=== PATIENT | female | born 1940 | race Native Hawaiian/Other Pacific Islander ===

== ENCOUNTER 2022-08-17 | Outpatient (REF) | payer BC, SELFPAY ==
--- NOTE | ~2022-08-17 | XR_ITS ---
EXAMINATION: XR SHOULDER, RIGHT CLINICAL INFORMATION: Pain. COMPARISON: Radiograph of the right shoulder, outside facility 06/24/2022. TECHNIQUE: Three views of the right shoulder. FINDINGS: No acute fractures or malalignment. Decrease calcific densities adjacent to the greater tuberosity when compared to 06/24/2022. 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 No significant soft tissue abnormality. Atherosclerotic disease of the thoracic aorta. XR/XR shoulder RT min 2V IMPRESSION: 1. No acute fractures or malalignment. 2. Decreased calcific densities adjacent to the greater tuberosity when compared to 06/24/2022.
== END 2022-08-17 00:01 | disposition home or self-care (01) ==
LOC: HO.HOSX
PROVIDERS: Visit Provider Physician Assistant
DX: M75.101 Unspecified rotator cuff tear or rupture of right shoulder, not specified as traumatic (principal)
CPT/HCPCS: 20610; 73030; J1040

== ENCOUNTER 2023-02-01 08:39 | Outpatient (REF) | payer BC, SELFPAY ==
--- NOTE | ~2023-02-01 | XR_ITS ---
EXAMINATION: XR SHOULDER, LEFT CLINICAL INFORMATION: Shoulder pain. COMPARISON: None available. TECHNIQUE: Three views of the left shoulder. FINDINGS: Some minimal degenerative changes are seen with a tiny inferior glenoid osteophyte and some minimal osteophytes at the inferior humeral head. The AC joint appears unremarkable. No fractures. No tendinous calcifications are seen. XR/XR shoulder LT min 2V IMPRESSION: Minimal degenerative changes as described above.
== END 2023-02-01 08:40 | disposition home or self-care (01) ==
LOC: HO.HOSX 08:39
PROVIDERS: Visit Provider Physician Assistant
DX: M19.011 Primary osteoarthritis, right shoulder (principal); M19.012 Primary osteoarthritis, left shoulder
CPT/HCPCS: 20610; 73030; J1040

== ENCOUNTER 2024-03-22 11:03 | Outpatient (AMB) | payer BC, SELFPAY ==
--- NOTE | 2024-03-22 11:54 | MHC.OFFVIS ---
Intake Visit Reasons: New Prob- Rt hand 2,3rd trigger finger w/pain Intake Note: Maria E 83 yr old female presents today for a new problem visit for her right thumb, index finger and middle finger pain/off and on numbness. States her fingers get numb when she is cooking and washing dishes. Worse in the mornings. Patient had an injection in her thumb about a year ago which gave her relief. Patient would like to discuss injection. Allergies codeine Allergy (Verified 03/22/24 11:58) Anxiety HPI HPI New Prob- Rt hand 2,3rd trigger finger w/pain: Details: Maria E is an 83 year old right hand dominant woman who presents with complaints of thumb & finger pain. She complains of pain & cramping in her right thumb, index, and middle fingers intermittently. She also complains of occasional painful locking of her [ ]. She found relief from a left thumb injection ~1 year ago at an outside clinic. She denies any numbness or tingling today. [facility] Medical History Asthma Gout High blood pressure High cholesterol Social History (Updated 03/22/24 @ 11:59 by Kofi Blanco) Alcohol intake: current Alcohol intake frequency: holidays/special occasions only Patient Tobacco Use Status: Never used Tobacco Current occupational status: retired Current occupation: rt hand / Review of Systems Const All systems reviewed & are unremarkable except as noted in HPI and below Physical Exam Const General: cooperative, healthy appearing and no acute distress Orientation/consciousness: patient oriented x3 HEENT Head: Yes normocephalic and Yes atraumatic Eyes EOM: EOMs intact bilaterally Resp Effort & Inspection: normal respiratory effort and able to speak in complete sentences Cardio Jugular venous distension: no JVD Skin General skin exam: turgor normal Rashes: no rashes Neuro General: patient oriented x3 Extrem Other: Evaluation of Right Upper Extremity: The patient is alert, oriented, and in no acute distress Neuro: Median, Ulnar, Radial nerves motor and sensory intact and sensation is normal to the tips of all digits No thenar or intrinsic wasting Good APB muscle belly firing and good finger cross Vascular: Cap refill brisk ROM: She can make a fist and extend all her digits Visible and palpable locking & catching of the thumb, and middle fingers Palpable nodule of the index finger a1 dipesh Tender over the a1 dipesh of the thumb, index, and middle fingers Skin: No lacerations or abrasions. General: No Ecchymosis. No Erythema or evidence of infection. Psych Appearance: grossly normal Affect: normal affect Attitude: cooperative Office Procedures Fracture Care Details: No fracture, injection Fracture Billing Code: Fracture Billing Code Assessment & Plan Assessment & Plan (1) Trigger thumb, right thumb: Code(s): M65.311 - Trigger thumb, right thumb Category: Medical (2) Trigger finger, right index finger: Code(s): M65.321 - Trigger finger, right index finger Category: Medical (3) Trigger finger, right middle finger: Code(s): M65.331 - Trigger finger, right middle finger Category: Medical Plan Assessment & Plan: 1. Right trigger thumb This is her primary complaint today 2. Right index finger trigger finger 3. Right middle finger trigger finger I educated her and her about this condition I discussed operative and non-operative treatment options The patient would like to proceed with an injection and the trigger thumb is the worst, and she is only interested in 1 injection today.. Injection #1: The risks and benefits of a steroid injection including but not limited to risk of damage to blood vessels, nerves, tendons, infection, skin bleaching, failure to improve symptoms, increased pain, and possible need for further injections or other intervention were discussed with the patient and the patient wishes to proceed with the steroid injection. Once consent was obtained, I sterilely prepped the area over the A1 dipesh of the flexor tendon sheath of the Right thumb. I then injected the flexor tendon sheath with a combination of 1 mL of dexamethasone (4mg/ml), and 1% lidocaine. The patient tolerated the procedure well with no complications. The patient would like to schedule appointment in 4-6 weeks to discuss possible steroid injections for her other trigger fingers at that time. She may follow up in the next few weeks to discuss a possible injection for her index & middle fingers Scribed for Chelle Coyne MD by Devonte Real medical director occupational health, on 03/22/24 at 12:15 PM, EST. Coding Level of Care Code New Pt Level 3 (40815) Diagnoses Trigger thumb, right thumb M65.311 Trigger finger, right index finger M65.321 Trigger finger, right middle finger M65.331 CPT Codes Fracture Care - Fracture Billing Code: Fracture Billing Code ([id number])
== END 2024-03-22 12:34 | disposition home or self-care (01) ==
PROVIDERS: PCP Nurse Practitioner Family; Visit Provider Orthopaedic Surgery
DX: M65.311 Trigger thumb, right thumb (principal); M65.321 Trigger finger, right index finger; M65.331 Trigger finger, right middle finger
CPT/HCPCS: 20550; 99203

== ENCOUNTER → 2024-03-22 11:03 | Outpatient (BNVA) | payer BC, SELFPAY | PROVIDERS: PCP Nurse Practitioner Family; Visit Provider Orthopaedic Surgery | DX: M65.311 Trigger thumb, right thumb (principal); M65.321 Trigger finger, right index finger; M65.331 Trigger finger, right middle finger | CPT/HCPCS: 20550; J1100 ==

== ENCOUNTER 2024-05-03 09:39 | Outpatient (AMB) | payer BC, SELFPAY ==
--- NOTE | 2024-05-03 09:46 | A.OFFVIS_ITS ---
Vital Signs 05/03/24 09:47 Height 4 ft 11 in Weight 130 lb BMI 26.3 Handedness Right Intake Visit Reasons: OV- Rt hand 2,3rd trigger finger w/pain Intake Note: Maria E is a 83 year old right hand dominant female who presents with her Lawson today for a follow up of her right thumb, index finger, and middle finger trigger. Right thumb injection done on 03/22/24. Patient reports she is still having relief from her last thumb injection. She states she feels she is doing well, has not had cramping and has no concerns. Denies numbness and tingling. She would like to repeat injection today if she is able to and would like to hold off on surgical treatment. Accompanied by: Spouse Allergies codeine Allergy (Verified 05/03/24 09:51) Anxiety HPI HPI OV- Rt hand 2,3rd trigger finger w/pain: Details: Maria E is an 83 year old right hand dominant woman who returns to discuss her right thumb index, and middle trigger fingers. She says she is doing well and her thumb no longer is locking or catching after her injection on 03/22/24. She also says her index & middle fingers are not particularly bothersome for her at this time. She denies any numbness or tingling today. [facility] Medical History High blood pressure Gout Asthma High cholesterol Social History Alcohol intake: current Alcohol intake frequency: holidays/special occasions only Patient Tobacco Use Status: Never used Tobacco Current occupational status: retired Current occupation: rt hand / Physical Exam Vital Signs: BMI result Body Mass Index 26.3 Extrem Other: Evaluation of Right Upper Extremity: The patient is alert, oriented, and in no acute distress Neuro: Median, Ulnar, Radial nerves motor and sensory intact and sensation is normal to the tips of all digits No thenar or intrinsic wasting Good APB muscle belly firing and good finger cross Vascular: Cap refill brisk ROM: She can make a fist and extend all her digits No locking or catching of any digits No tenderness over the a1 dipesh Assessment & Plan Assessment & Plan (1) Trigger thumb, right thumb: Code(s): M65.311 - Trigger thumb, right thumb Category: Medical (2) Trigger finger, right index finger: Code(s): M65.321 - Trigger finger, right index finger Category: Medical (3) Trigger finger, right middle finger: Code(s): M65.331 - Trigger finger, right middle finger Category: Medical Plan Assessment & Plan: 1. Right trigger thumb, S/P injection Date of injection: 03/22/24 Resolved 2. Right index finger trigger finger Resolved 3. Right middle finger trigger finger Resolved She says she is doing well following her injection, and her thumb is no longer locking or catching If her symptoms return she can follow up to discuss treatment options Otherwise she can follow up prn Scribed for Chelle Coyne MD by Devonte Real, medical records auditor, on 05/03/24 at 9:55 AM, EST. Coding Level of Care Code Est Pt Level 3 (82479) Diagnoses Trigger thumb, right thumb M65.311 Trigger finger, right index finger M65.321 Trigger finger, right middle finger M65.331
[2024-05-03 09:47] VITALS: BMI 26.3
== END 2024-05-03 09:54 | disposition home or self-care (01) ==
PROVIDERS: PCP Nurse Practitioner Family; Visit Provider Orthopaedic Surgery
DX: M65.311 Trigger thumb, right thumb (principal); M65.321 Trigger finger, right index finger; M65.331 Trigger finger, right middle finger
CPT/HCPCS: 99212

== ENCOUNTER → 2024-05-03 09:39 | Outpatient (BNVA) | payer BC, SELFPAY | PROVIDERS: PCP Nurse Practitioner Family; Visit Provider Orthopaedic Surgery ==

== ENCOUNTER 2024-12-05 13:02 | Outpatient (REF) | payer MEDICARE, SELFPAY | END 2024-12-05 13:03 | disposition home or self-care (01) | LOC: HO.XRAY 13:02 | PROVIDERS: PCP Nurse Practitioner Family; Visit Provider Physician Assistant | DX: M16.12 Unilateral primary osteoarthritis, left hip (principal); M54.50 Low back pain, unspecified | CPT/HCPCS: 73502 ==

== ENCOUNTER → 2024-12-05 13:09 | Outpatient (BNV) | payer MEDICARE, SELFPAY | PROVIDERS: PCP Nurse Practitioner Family; Visit Provider Radiology Diagnostic Radiology | DX: M25.552 Pain in left hip (principal) | CPT/HCPCS: 73502 ==

== ENCOUNTER 2024-12-05 13:43 | Outpatient (AMB) | payer BC, SELFPAY ==
--- NOTE | 2024-12-05 13:47 | MHC.OFFVIS ---
Vital Signs 12/05/24 13:53 Height 4 ft 11 in Weight 130 lb BMI 26.3 Handedness Right Intake Visit Reasons: New Prob - left hip pain Intake Note: Maria E is a 84 year old female who presents today for a evaluation of her left hip pain. Patient reports ongoing pain for about 2 months . She mentions that her pain is near the glutes and it radiates down tot her foot. Patient notices that her pain is worse when she is sleep since it is keeping her awake. She has tried Ibuprofen, topical ointment with mild relief. Patient is interested in getting an injection today. Allergies codeine Allergy (Verified 12/05/24 13:51) Anxiety HPI HPI New Prob - left hip pain: Details: Ms. Hull is an 84-year-old female who presents to the office today for evaluation of left hip pain. She reports that she has left lower back pain which radiates into the buttocks and occasionally has groin pain. Additionally, the patient also reports numbness and tingling that travels throughout the entire left lower extremity accompanied by sharp shooting pain. Her pain is worse at night. She has tried topical creams and anti-inflammatories with little relief. [facility] Medical History High blood pressure Gout Asthma High cholesterol Social History Alcohol intake: current Alcohol intake frequency: holidays/special occasions only Patient Tobacco Use Status: Never used Tobacco Current occupational status: retired Current occupation: rt hand / Review of Systems Const All systems reviewed & are unremarkable except as noted in HPI and below Physical Exam Vital Signs: BMI result Body Mass Index 26.3 Const General: cooperative, healthy appearing and no acute distress Resp Effort & Inspection: normal respiratory effort and able to speak in complete sentences Cardio Rate: regular rate Peripheral pulses: Peripheral pulses 2+ throughout Skin Lesions: no lesions Rashes: no rashes Extrem Other: Left hip: Normal to inspection. No ecchymosis, erythema, or edema. Full hip ROM in all planes. No tenderness to palpation over the greater trochanteric bursa. 5/5 strength with resisted hip flexion, knee extension, abduction, and abduction. Able to perform straight leg raise. NVI. Assessment & Plan Assessment & Plan (1) Osteoarthritis of left hip: Code(s): M16.12 - Unilateral primary osteoarthritis, left hip Category: Medical (2) Low back pain: Code(s): M54.50 - Low back pain, unspecified Category: Medical Plan Ms. Hull is an 84-year-old female who presents to the office today for evaluation of left hip pain. She reports that she has left lower back pain which radiates into the buttocks and occasionally has groin pain. Additionally, the patient also reports numbness and tingling that travels throughout the entire left lower extremity accompanied by sharp shooting pain. Her pain is worse at night. She has tried topical creams and anti-inflammatories with little relief. While in the office today, discussed the role of cortisone injection. The patient will be sent to the hospital for intra-articular cortisone injection under fluoroscopy guidance. Additionally, I would like Dr. Mitchell to take a look at her lower back to see if there is any additional pathology leading to the pain that she is experiencing down the left lower extremity. Her follow up with Orthopedics will be p.r.n., sooner if needed. X-rays of the left hip which were obtained while in the office today and were reviewed by me, Gilda Ghosh PA-C, revealed osteoarthritis left hip with no acute fracture dislocation. Orders: Orders XR hip LT min 2V Today M25.559 - Pain in unspecified hip FL Guided Asp Inj Major Jt LT Today M16.12 - Unilateral primary osteoarthritis, left hip Coding Level of Care Code New Pt Level 4 (43035) Diagnoses Osteoarthritis of left hip M16.12 Low back pain M54.50
[2024-12-05 13:53] VITALS: BMI 26.3
--- OUTSIDE RECORDS SUMMARY | 2024-12-05 14:43 | XMS_ITS | Clinical Summary ---
Author Organization [facility] it Address [address] [place] [address] Care Team Providers Care Bridge Attacher Name Role Phone Unavailable Primary Care Provider Unavailabl e Surgical History Surgery Date Site/Laterality Comments HERNIA REPAIR 1959 PROCEDURE: HISTORICAL HERNIA REPAIR/ING; COMMENT: bilateral CHOLECYSTECTOMY 1998 PROCEDURE: HISTORICAL CHOLECYSTECTOMY ESOPHAGOGASTRODUODENOSCOPY 11/16/13 PROCEDURE: [place] ESOPHAGOGASTRODUODENOSCOPY TRANSORAL DIAGNOSTIC; COMMENT: normal, with normal esophageal biopsies COLONOSCOPY 11/21/15 PROCEDURE: HISTORICAL COLONOSCOPY; COMMENT: tics and hemorrhoids; would not repeat Medical History Medical History Date Comments Unspecified essential hypertension DX:Unspecified essential hypertension Esophageal reflux 06/13/2013 DX:Esophageal reflux Psoriasis DX:Psoriasis Hepatitis B core antibody positive 05/21/2020 DX:Hepatitis B core antibody positive Family History Medical History Relation Name Comments Other: HIV Brother 1 Other: choked on toast Brother 2 Diabetes Daughter asthma, hyperte nsion Other: hit by car Father Hypertension Mother asthma, had col ostomy bag Other: HIV Sister 1 Brain cancer Sister 2 Hypertension Sister 3 Hilaria asthma Relation Name Status Comments Brother 1 Brother 2 Daughter Alive Father Maternal Grandfather Maternal Grandmother Mother Paternal Grandfather unknown Paternal Grandmother Sister 1 Sister 2 Sister 3 Hilaria Alive Sister 4 Luna Alive Sister 5 Ashleigh Alive Sister 6 Sonja Alive Social History Tobacco Use Types Packs/Day Years Used Date Smoking Tobacco: Never Smokeless Tobacco: Never Alcohol Use Standard Drinks/Week Comments Yes 2 (1 standard drink = 0.6 oz pur e alcohol) Comments Unknown Sex and Gender Information Value Date Recorded Sex Assigned at Not on file Legal Sex Female 8:07 PM EST Gender Identity Not on file Sexual Orientation Not on file Obstetrics History Plan of Treatment Health Maintenance Due Date Last Done Comments COVID-19 Vaccine (#1) 1945 RSV Immunization Patients 60+ Years Old (1 - 1-dose 75+ series) 2015 DTaP,Tdap,and Td Vaccines (3 - Td or Tdap) 02/16/2018 08/18/2017, 07/28/2011 Cholesterol Screening (Lipid Panel) 09/26/2022 Depression Screening 09/26/2022 Falls Risk Assessment 09/26/2022 Osteoporosis Screening (Bone Density Screening) 09/26/2022 Social Influencers of Health Screening 09/26/2022 Hypertension/CHF/CAD Annual BMP Blood Test 10/01/2022 Influenza Vaccine (#1) 2024 9, 07/16/2015, 07/17/2013, Additional history exists Pneumococcal Vaccine: 50+ Years Completed 01/15/2016, 02/25/2009 Zoster Vaccines Completed 11/01/2018, 06/25, 07/25/2012 HIB Vaccines Aged Out No longer eligi ble based on patient's age to complete this topic HPV Vaccines Aged Out No longer eligi ble based on patient's age to complete this topic Hepatitis A Vaccines Aged Out No long er eligible based on patient's age to complete this topic Hepatitis B Vaccines Aged Out No long er eligible based on patient's age to complete this topic IPV Vaccines Aged Out No longer eligi ble based on patient's age to complete this topic MMR Vaccines Aged Out No longer eligi ble based on patient's age to complete this topic Meningococcal ACWY Vaccine Aged Out N o longer eligible based on patient's age to complete this topic Meningococcal B Vacine Aged Out No lo nger eligible based on patient's age to complete this topic RSV Immunization Patients Under 20 months Aged Out No longer eligible based on patient's age to complete this topic Varicella Vaccines Aged Out No longer eligible based on patient's age to complete this topic
== END 2024-12-05 14:09 | disposition home or self-care (01) ==
PROVIDERS: PCP Nurse Practitioner Family; Visit Provider Physician Assistant
DX: M16.12 Unilateral primary osteoarthritis, left hip (principal); M54.50 Low back pain, unspecified
CPT/HCPCS: 99214

== ENCOUNTER 2024-12-21 12:39 | Outpatient (REF) | payer MEDICARE, SELFPAY ==
--- NOTE | ~2024-12-21 | FL_ITS ---
FLUOROSCOPIC LEFT HIP ARTICULAR STEROID INJECTION Indications: Left hip pain. Procedure: Risks and benefits and possible complications were discussed with the patient and the consent form was signed. The patient was placed hip on the fluoroscopy table. The left hip was prepped and draped in normal sterile fashion. 1% buffered lidocaine was used for anesthesia. A 22-gauge spinal needle was used to access the left hip joint. Intra-articular position of the needle within the hip joint was verified using 3 cc of Omnipaque 300. A total of 5 cc 1% lidocaine and 80 mg Depo-Medrol was then injected into the hip joint. The needle was then removed and a Band-Aid was applied to the injection site. The patient tolerated the procedure well. There were no immediate complications. FL/FL Guided Asp Inj Major Jt LT Impression: Successful fluoroscopic left hip intra-articular steroid injection. The procedure was performed by Pato Chandler PA-C, and directly supervised by Dr. Powers. Electronically signed by: Alfonso Powers MD 12/22/2024 05:06 PM ZENAIDA
--- OUTSIDE RECORDS SUMMARY | 2024-12-21 15:01 | XMS_ITS | Clinical Summary ---
Author Organization [facility] it Address [address] [place] [address] Care Team Providers Care Registered Nurse Surgical Services Name Role Phone Unavailable Primary Care Provider Unavailabl e Surgical History Surgery Date Site/Laterality Comments HERNIA REPAIR 1959 PROCEDURE: HISTORICAL HERNIA REPAIR/ING; COMMENT: bilateral CHOLECYSTECTOMY 1998 PROCEDURE: HISTORICAL CHOLECYSTECTOMY ESOPHAGOGASTRODUODENOSCOPY 11/16/13 PROCEDURE: [place] ESOPHAGOGASTRODUODENOSCOPY TRANSORAL DIAGNOSTIC; COMMENT: normal, with normal [...] Health Maintenance Due Date Last Done Comments RSV Immunization Patients 60+ Years Old (1 - 1-dose 75+ series) 2015 COVID-19 Vaccine ( - 2023- season) 2024 Influenza Vaccine (#1) 2024 9, 07/16/2015, 07/17/2013, Additional history exists DTaP,Tdap,and Td Vaccines (3 - Td or Tdap) 08/18/2027 08/18/2017, 07/28/2011 Pneumococcal Vaccine: 50+ Years Completed 01/15/2016, 02/25/2009 [...]
--- OUTSIDE RECORDS SUMMARY | 2024-12-21 15:01 | XMS_ITS | Patient Health Record ---
Author Organization [facility] Address [address] [place] [address] Care Team Providers Care Kiln Hand Name Role Phone Denise Talley Primary Care Provider Unavailabl e Allergies Allergen (clinical drug ingredient) Drug/Non Drug Allergy documented on EMR Reaction Allergy Type Onset Date Status Guiatuss AC dizziness Drug Allergy Activ e Reason For Referral No Information Medications Medication SIG (Take, Route, Frequency, Duration) Notes Start Date End Date Status Allopurinol 100 mg TAKE 2 TABLETS ONCE DAILY Active Flovent HFA 110 MCG/ACT 4 puffs Inhalation Twice a day Active Centrum Silver 50+Women - as directed Orally Active amLODIPine Besylate 5 MG 1 tablet Orally Once a day Not-Taking metroNIDAZOLE 0.75 % 1 application Externally Twice a day Active hydroCHLOROthiazide 25 MG 1 tablet in the morning Orally Once a day Not-Taking Simvastatin 10 MG 1 tablet in the evening Orally Once a day Active Zocor 10 MG 1 tablet in the evening Orally Once a day Not-Taking Claritin 10 MG 1 tablet Orally Once a day Not-Taking Metamucil Active ProAir HFA 108 (90 Base) MCG/ACT 2 puff as needed Inhalation every 4 hrs Not-Taking Diclofenac Sodium 1 % apply 1 gm to the left and right big toe joint Externally Twice a day for 30 days 2 Active Vitamin D 50 MCG (2000 UT) 1 capsule Orally Once a day Active Vitamin C 1000 MG as directed Orally Active Allopurinol 100 MG 2 tablet Orally Once a day for 30 day(s) Active amLODIPine-Olmesartan 5-20 MG 1 tablet Orally Once a day Active Otezla 30 MG 1 tablet Orally Twice a day Active Tacrolimus 0.1 % 1 application Externally Once a day Apply sparingly twice a day to psoriasis on eyelids and face if itchy Not-Taking predniSONE 10 MG (21) as directed Orally daily for 6 days Take 6 tabs on the first day, 5 tabs on the second day, 4 tabs on the 3rd day, 3 days of the 4th day, two tabs on the 5th day, and one tab on the 6th day 1 Not-Taking Diclofenac Sodium 1 % as directed Externally place 1 g onto the skin 2 times daily Not-Taking Adalimumab 40 MG/0.4ML as directed Subcutaneous inject 40 mg into the skin every 14 days Not-Taking Fluticasone Propionate 50 MCG/ACT 1 spray in each nostril Nasally BID Not-Taking [place] 3 1000 MG 1 capsule Orally BID Active ZyrTEC Allergy 10 MG 1 tablet Orally Once a day Not-Taking Calcipotriene 0.005 % 1 application Externally Twice a day Apply sparingly twice a day with betamethasone to affected areas if needed Not-Taking Diprolene 0.05 % 1 application Externally Once a day Apply sparingly twice a day with calcipotriene to affected areas if needed Active PriLOSEC OTC 20 MG 2 tablet 30 minutes before morning meal Orally Once a day Active Problems Problem Type SNOMED Code ICD Code Onset Dates Problem Status W/U Status Risk Notes Problem [id number] Primary osteoarthrit is, right ankle and foot (M19.071) Active confirmed Problem [id number] Primary osteoarthrit is, left ankle and foot (M19.072) Active confirmed Plan Of Treatment Pending Test Test Name Order Date X ray : Foot, left 3v 10/09/2021 X ray : Foot, right 3v 10/09/2021 DRAIN/INJECT, SMALL JOINT/BURSA 01/08/20 22 Insurance Providers Payer Name Payer Address Payer Phone Subscriber Number Group Number Insured Name Patient Relationship to Insured Coverage Start Date Coverage End Date [facility] and [facility] [address] [place] [address] [phone] [id number] Maria E Hull Self - patient is the insured Medications Administered Medication Instructions Date of Administration Dosage Notes Dexamethasone 01/07/2022 0.5 mL Kenalog 01/07/2022 0.5 mL Medical (General) History Medical History History ICD Code 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 Balaji Guan on 03/01/2013 Psoriasis 3/19 right leg Dysphagia- negative EGD with Bernadine Vitreous degeneration- poste rior vitreus detachment present from note of Dr. Balaji Guan on 03/01/2013 Esophageal reflux- taken from note of Dr Gildardo Brooke on 12/01/2010 Asthma- very mild. Does not require the Albuterol more than a couple of times every couple of months Hypertension Hyperlipidemia gout peripheral neuropathy Surgical History Surgery Date(Month/Year) Esophagogastroduodenoscopy t ransoral diagnostic- normal, with normal esophageal biopsies Historical cholecystectomy Historical colonoscopy- tics and hemorrh oids; would not repeat Historical hernia repair- bilateral Hospitalization History Reason Date(Month/Year) vaginal delivery 1962 vaginal delivery 1961 vaginal delivery 1957
--- OUTSIDE RECORDS SUMMARY | 2024-12-21 15:01 | XMS_ITS | Patient Health Record ---
Author Organization [facility] Address [address] [facility] [place] [address] Care Team Providers Care Commodities Requirements Analyst Name Role Phone Alfredo Ana MONAE Primary Care Provider Unavail able Keisha Camarena Unavailable [phone] Allergies Allergen (clinical drug ingredient) Drug/Non Drug Allergy documented on EMR Reaction Allergy Type Onset Date Status codeine Codeine Unknown Drug Allergy Active Latex Latex Unknown Allergy Active Reason For Referral No Information Medications Medication SIG (Take, Route, Frequency, Duration) Notes Start Date End Date Status Qlzccuh-Zfbyweiacux-Wcogoen rol Active Ascorbic Acid Active Clobetasol Propionate 0.05 % 1 application Externally Twice a day Active metroNIDAZOLE 0.75 % 1 application Exter antonieta Twice a day Active cycloSPORINE 0.05 % 1 drop into affected eye Ophthalmic Twice a day Active [place]-3 Active Fluticasone Propionate 50 MCG/ACT 1 spray in each nostril Nasally Once a day for 30 day(s) Active Multivitamin Active Simvastatin 10 MG 1 tablet in the even ing Orally Once a day for 30 day(s) Active Allopurinol 100 MG 1 tablet Orally Once a day for 30 day(s) Active Omeprazole 20 MG 1 capsule 30 minutes before morning meal Orally Once a day for 30 day(s) Active Albuterol Sulfate HFA 108 (90 Base) MCG/ACT 1 puff as needed Inhalation every 4 hrs Active Gabapentin Active Apremilast 30 MG 1 tablet Orally Twic e a day for 30 day(s) Active Symbicort Active amLODIPine-Olmesartan 5-20 MG 1 tablet Orally Once a day for 30 day(s) Active Social History Tobacco Use: Social History Observation Description Date Details (start date - stop date) Never Smoker NA - NA Tobacco Use/Smoking Question Answer Notes Are you a: nonsmoker Additional Findings: Tobacco Non-User Current no n-smoker Alcohol Screen Question Answer Notes Did you have a drink contain ing alcohol in the past year? Yes How often did you have a dri nk containing alcohol in the past year? Monthly or less (1 point) Points 1 Interpretation Negative Tobacco use other than smoking: Question Answer Notes Are you an other tobacco user? 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
--- OUTSIDE RECORDS SUMMARY | 2024-12-21 15:01 | XMS_ITS ---
Author Organization [facility] Address [address] [address] Care Team Providers Care Projection Camera Operator Name Role Phone Denise Talley Primary Care Provider NICKY Villareal [phone] REASON FOR VISIT prescription renewal request Encounters Encounter Location Date Provider Diagnosis [facility] [address] [address] 09/28/2023 NICKY LYNCH Plan Of Treatment No Information Progress Notes * Luisa HULLB:1940 (82 yo F)Acc No.[id number]:09/28/2023 Patient:?Maria E HULL :1940???Age:82 Y???Sex:Female Address:[place] [address] * true * Date:? Generated for Kenzie higgins/Claudia/eTransmitting on:?12/21/2024 03:00 PM EST
[2025-01-01] MEDS: iohexoL 300 MG/ML 50 ML INFUS..BTL INTRAARTIC (13:31)
[2025-01-01] MEDS: Lidocaine HCl 1 % MPF 30 ML VIAL 5 ML INTRAARTIC (13:32)
[2025-01-01] MEDS: methylPREDNISolone acetate 80 MG VIAL INTRAARTIC (13:33)
== END 2024-12-21 12:40 | disposition home or self-care (01) ==
LOC: HO.XRAY 12:39
PROVIDERS: PCP Nurse Practitioner Family; Visit Provider Physician Assistant
DX: M16.12 Unilateral primary osteoarthritis, left hip (principal)
CPT/HCPCS: 20610; 77002; J1010; J2003; Q9967

== ENCOUNTER → 2024-12-21 13:00 | Outpatient (BNV) | payer MEDICARE, SELFPAY | PROVIDERS: PCP Nurse Practitioner Family; Visit Provider Physician Assistant Surgical | DX: M25.552 Pain in left hip (principal) | CPT/HCPCS: 20610; 77002 ==

== ENCOUNTER 2025-01-31 13:18 | Outpatient (AMB) | payer MEDICARE, SELFPAY ==
--- NOTE | 2025-01-31 13:34 | MHC.OFFVIS ---
Vital Signs 01/31/25 13:38 Height 4 ft 11 in Weight 130 lb BMI 26.3 Intake Visit Reasons: OV- Right trigger thumb, S/P injection 03/22/24 Intake Note: Maria E 84 yr old female presents today for her Right trigger thumb, S/P injection 03/22/24 done with Rere Vo. States her thumb continues to lock and is becoming more painful. Patient states she would like to repeat injection. States she doesn't want surgery. Allergies amoxicillin Allergy (Verified 01/31/25 13:39) hives codeine Allergy (Verified 01/31/25 13:37) Anxiety HPI HPI OV- Right trigger thumb, S/P injection 03/22/24: Details: Maria E is an 84 year old right hand dominant woman who returns to discuss her right thumb pain. Her pain is more at the base of the thumb in his worse with pinching and gripping activities History of trigger thumb injection by DOV Vo on 03/22/24. She denies any numbness or tingling today. [facility] Medical History High blood pressure Gout Asthma High cholesterol Social History Alcohol intake: current Alcohol intake frequency: holidays/special occasions only Patient Tobacco Use Status: Never used Tobacco Current occupational status: retired Current occupation: rt hand / Review of Systems Const All systems reviewed & are unremarkable except as noted in HPI and below Physical Exam Vital Signs: BMI result Body Mass Index 26.3 Const General: no acute distress and alert Orientation/consciousness: patient oriented x3 Neuro General: patient oriented x3 Extrem Other: Evaluation of Right Upper Extremity: The patient is alert, oriented, and in no acute distress Neuro: Median, Ulnar, Radial nerves motor and sensory intact and sensation is normal to the tips of all digits Vascular: Cap refill brisk ROM: She can make a fist and extend all her digits No locking or catching No tenderness over the thumb a1 dipesh Most tender over the right basal joint Pos shoulder sign Psych Appearance: grossly normal Affect: normal affect Attitude: cooperative Office Procedures AMB Fracture Care Details: No fracture, injection Fracture Billing Code: Fracture Billing Code Assessment & Plan Assessment & Plan (1) 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 Right basal joint osteoarthritis, based on PE I educated her about this condition I discussed operative and non-operative treatment options The patient would like to proceed with an injection I discussed activity modification, they should limit or avoid any heavy or repetitive pinching or gripping activities She was fitted for a comfort cool brace to wear with daily activity Injection #1: The risks and benefits of a steroid injection including but not limited to risk of damage to blood vessels, nerve, tendon, infection, skin bleaching, persistent or worsening pain, and failure to improve symptoms were discussed with the patient and they wish to proceed with the steroid injection. Once consent was obtained the skin over the dorsum of the Right basal joint was sterilely prepped. The joint was then injected with a combination of 1 mL of (40 mg/ml} Depo-Medrol and 1% plain Lidocaine. The patient appears to have tolerated the procedure well and with no complications. She had good early relief before leaving clinic today. She knows that they may not have another steroid injection into this joint for least 4 months. 2. Right trigger thumb, S/P injection Date of injection: 03/22/24 Resolved 3. Right index finger trigger finger Resolved 4. Right middle finger trigger finger Resolved Scribed for Chelle Coyne MD by Devonte Real, administrative medical director, on 01/31/25 at 2:00 PM EST. 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
[2025-01-31 13:38] VITALS: BMI 26.3
--- OUTSIDE RECORDS SUMMARY | 2025-01-31 15:21 | XMS_ITS | Clinical Summary ---
Author Organization [facility] it Address [address] [place] [address] Care Team Providers Care Sale Professional Digital Marketing Name Role Phone Unavailable Primary Care Provider Unavailabl e Surgical History Surgery Date Site/Laterality Comments HERNIA REPAIR 1959 PROCEDURE: HISTORICAL HERNIA REPAIR/ING; COMMENT: bilateral CHOLECYSTECTOMY 1998 PROCEDURE: HISTORICAL CHOLECYSTECTOMY ESOPHAGOGASTRODUODENOSCOPY 11/16/13 PROCEDURE: [place] ESOPHAGOGASTRODUODENOSCOPY TRANSORAL DIAGNOSTIC; COMMENT: normal, with normal [...] Due Date Last Done Comments RSV Immunization Adult Patients (1 - 1-dose 75+ series) 2015 COVID-19 [...] age to complete this topic Meningococcal B Vaccine Aged Out No l onger eligible based on patient's age to complete this topic RSV Immunization Patients Under 20 months Aged Out No longer eligible based on patient's age to complete this topic Varicella Vaccines Aged Out No longer eligible based on patient's age to complete this topic
--- OUTSIDE RECORDS SUMMARY | 2025-01-31 15:21 | XMS_ITS ---
Author Organization [facility] Address [address] [address] Care Team Providers Care Reinsurance Analyst Name Role Phone Denise Talley Primary Care Provider NICKY Villareal [phone] REASON FOR VISIT prescription renewal request Encounters Encounter Location Date Provider Diagnosis [facility] [address] [address] 09/28/2023 NICKY LYNCH Plan Of Treatment No Information Progress Notes * Luisa HULLB:1940 (82 yo F)Acc No.[id number]:09/28/2023 Patient:?Maria E HULL :1940???Age:82 Y???Sex:Female Address:[place] [address] * true * Date:? Generated for Courtneyi ronaldo/Claudia/eTransmitting on:?01/31/2025 03:21 PM EDT
--- OUTSIDE RECORDS SUMMARY | 2025-01-31 15:21 | XMS_ITS | Patient Health Record ---
Author Organization [facility] Address [address] [facility] [address] [place] [address] Care Team Providers Care Corporate Quality Manager Name Role Phone Denise Talley Primary Care [...] spray in each nostril Nasally BID Not-Taking [place] 3 1000 MG 1 capsule Orally BID [...] Problem Status W/U Status Risk Notes Problem [id number] Primary osteoarthrit is, right ankle and foot (M19.071) Active confirmed Problem 157828217 Primary osteoarthrit is, left ankle and foot (M19.072) Active confirmed Plan Of Treatment Pending Test Test Name Order Date X ray : Foot, left 3v 10/09/2021 X ray : Foot, right 3v 10/09/2021 DRAIN/INJECT, SMALL JOINT/BURSA 01/08/20 22 Insurance Providers Payer Name Payer Address Payer Phone Subscriber Number Group Number Insured Name Patient Relationship to Insured Coverage Start Date Coverage End Date [facility] [address] [place] [address] [phone] [id number] Maria E Hull Self - patient [...]
--- OUTSIDE RECORDS SUMMARY | 2025-01-31 15:21 | XMS_ITS | Patient Health Record ---
Author Organization [facility] Address [address] [facility] [place] [address] Care Team Providers Care Gear Cutting Machine Set Up Operator Name Role Phone Alfredo Ana MONAE Primary Care Provider Unavail able Keisha Camarena Unavailable [phone] Allergies Allergen (clinical drug ingredient) Drug/Non Drug Allergy documented on EMR Reaction Allergy Type Onset Date Status codeine Codeine Unknown Drug Allergy Active Latex Latex Unknown Allergy Active Reason For Referral No Information Medications Medication SIG (Take, Route, Frequency, Duration) Notes Start Date End Date Status Jtsflix-Ztdwrtrcybu-Oorwtkx rol Active Ascorbic Acid Active Clobetasol Propionate 0.05 % 1 application Externally Twice a day Active metroNIDAZOLE 0.75 % 1 application Exter antonieta Twice a day Active cycloSPORINE 0.05 % 1 drop into affected eye Ophthalmic Twice a day Active [place]-3 Active Fluticasone Propionate 50 MCG/ACT 1 spray [...] Problem Status W/U Status Risk Notes Problem 434631948 Neuropathy (G62.9) Active confirmed Problem 925203235251446 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 Problem 454705578222891 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
== END 2025-01-31 14:30 | disposition home or self-care (01) ==
LOC: HO.HOS 13:18
PROVIDERS: PCP Nurse Practitioner Family; Visit Provider Orthopaedic Surgery
DX: M18.11 Unilateral primary osteoarthritis of first carpometacarpal joint, right hand (principal)
CPT/HCPCS: 20600; 99213

== ENCOUNTER → 2025-01-31 13:18 | Outpatient (BNVA) | payer MEDICARE, SELFPAY | PROVIDERS: PCP Nurse Practitioner Family; Visit Provider Orthopaedic Surgery | DX: M18.11 Unilateral primary osteoarthritis of first carpometacarpal joint, right hand (principal) | CPT/HCPCS: 20600; 99212; J1010; J2003 ==

== ENCOUNTER 2025-02-23 10:13 | Outpatient (AMB) | payer MEDICARE, SELFPAY ==
[2025-02-23 10:28] VITALS: BMI 26.3
--- NOTE | 2025-02-23 10:28 | A.OFFVIS_ITS ---
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 Patient was referred by Gilda Ghosh for complaints of left sided lower back pain with radiation of buttocks and with occasional groin pain. She has numbness and tingling throughout the left leg. A intraarticular injection was ordered to be done at the [facility] - done 12/21/24. States injection helped and is doing very well. Patient mentioned she had knee pain and had an appt schedule but since having injection, her knee pain has improved and she no longer needed knee pain appointment. Patient also mentioned she no longer has radiating pain or numbness in toes. Allergies amoxicillin Allergy (Verified 02/23/25 10:33) hives codeine Allergy (Verified 02/23/25 10:33) Anxiety Medication List - Last Reconciled 02/23/25 by Courtney Rodriguez MD allopurinol 200 mg PO DAILY amlodipine-olmesartan 5-20 mg 1 tab PO DAILY apremilast (Otezla) 30 mg PO BID clobetasol 0.05% 1 appl topical BID fluticasone propionate 50 mcg/actuation sprays intranasal dxfejpzzvbn-ehkwnbxfu-naexoomg 100-62.5-25 mcg (Trelegy Ellipta) 1 inh inhalation DAILY ipratropium bromide intranasal metronidazole 0.75% 1 appl topical BEDTIME omeprazole 20 mg PO BID simvastatin 10 mg PO BEDTIME HPI Comments Details: Before the injection, she was having lower back, left sided, going down to left foot. She then had intraarticular injection under fluuor, by Pato MONAE Radiology, on 12/21/24. That helped even the back pain and leg pain. Even the groin pain resolved. Even the left foot numbness is better. No bladder/bowel changes. Walking ok, no falls, drives. Ibuprofen prn, last taken 5 days ago, for upper back pain, after gardening. Was having right knee pain, bought OTC brace, been resolved since. No swelling or edema. [facility] Medical History High blood pressure Gout Asthma High cholesterol Social History Alcohol intake: current Alcohol intake frequency: holidays/special occasions only Patient Tobacco Use Status: Never used Tobacco Current occupational status: retired Current occupation: rt hand / Review of Systems Const All systems reviewed & are unremarkable except as noted in HPI and below Physical Exam Vital Signs: BMI result Body Mass Index 26.3 Constitutional: Patient appears to be in no acute distress, well nourished and well developed. Patient was appropriately conversant and oriented. Good historian. MSK: No specific abnormalities found on inspection of the spine and all extremities. No tenderness over spinous processes, facets, GT, SI, knees. Tends to stand tilted to the right side. But no scoliotic curvature noted. No effusion on either knees. No pedal edema. Neurological: Neurologic examination of the upper and lower extremities was nonfocal with intact sensation, muscle stretch reflexes and without focal motor deficits . Cotter?s negative bilaterally. Babinski was down going bilaterally. Clonus was negative. Gait is non-antalgic without loss of balance. Results Reviewed Results Reviewed: Ordering Physician: Gilda Ghosh PA-C Date of Service: 12/05/24 Procedure(s): XR hip LT min 2V Accession Number(s): [id number] cc: Ana Fuentes CHILD DEVELOPMENT INSTRUCTOR; Gilda Ghosh PA-C~ CLINICAL HISTORY: M25.559 - Pain in unspecified hip 2 view left hip Comparison: None Findings: No acute fracture or dislocation. Mild osteoarthritic changes in the left hip and hemipelvis. The soft tissues are unremarkable. IMPRESSION: No acute findings. This document has been electronically signed by: Mt Fields MD on 12/06/2024 04:16:33 I reviewed records from the following: Ortho Intervention radiology Assessment & Plan Assessment & Plan (1) Osteoarthritis of left hip: Code(s): M16.12 - Unilateral primary osteoarthritis, left hip Category: Medical Qualifiers: Osteoarthritis type: primary Qualified Code(s): M16.12 - Unilateral primary osteoarthritis, left hip (2) Low back pain: Code(s): M54.50 - Low back pain, unspecified Category: Medical Qualifiers: Chronicity: unspecified Back pain laterality: bilateral Sciatica presence: without sciatica Qualified Code(s): M54.50 - Low back pain, unspecified Plan She was doing well after left intra-articular injection. No signs of lumbar radiculopathy. Neurologic exam intact. We will continue to follow every 3 months. Call sooner if needed. Assessment and plan discussed with patient, and patient was agreeable. All questions were answered thoroughly. Courtney Rodriguez MD, ORTIZ Board Certified, [place] Board [employer] and Rehabilitation (ABPMR) Board Certified, [place] Board [employer] Electrodiagnostic Medicine (ABEM) Coding Level of Care Code New Pt Level 3 (15251) Diagnoses Primary osteoarthritis of left hip M16.12 Osteoarthritis type: primary Bilateral low back pain without sciatica, unspecified chronicity M54.50 Chronicity: unspecified Back pain laterality: bilateral Sciatica presence: without sciatica
--- OUTSIDE RECORDS SUMMARY | 2025-02-23 11:13 | XMS_ITS ---
Author Organization [facility] Address [address] [address] Care Team Providers Care Physical Therapy Attendant Name Role Phone Denise Talley Primary Care Provider NICKY Villareal [phone] REASON FOR VISIT prescription renewal request Encounters Encounter Location Date Provider Diagnosis [facility] [address] [address] 09/28/2023 NICKY LYNCH Plan Of Treatment No Information Progress Notes * Luisa HULLB:1940 (82 yo F)Acc No.[id number]:09/28/2023 Patient:?Maria E HULL :1940???Age:82 Y???Sex:Female Address:[place] [address] * true * Date:? Generated for Courtneyi ronaldo/Claudia/eTransmitting on:?02/23/2025 11:13 AM EDT
--- OUTSIDE RECORDS SUMMARY | 2025-02-23 11:13 | XMS_ITS | Clinical Summary ---
Author Organization [facility] it Address [address] [place] [address] Care Team Providers Care Route Clerk Name Role Phone Unavailable Primary Care Provider Unavailabl e Surgical History Surgery Date Site/Laterality Comments HERNIA REPAIR 1959 PROCEDURE: HISTORICAL HERNIA REPAIR/ING; COMMENT: bilateral CHOLECYSTECTOMY 1998 PROCEDURE: HISTORICAL CHOLECYSTECTOMY ESOPHAGOGASTRODUODENOSCOPY 11/16/13 PROCEDURE: [place] ESOPHAGOGASTRODUODENOSCOPY TRANSORAL DIAGNOSTIC; COMMENT: normal, with normal [...] ( - 2023- season) 2024 Influenza Vaccine (Season Ended) 2025 07/26/2019, 07/16/2015, 07/17/2013, Additional history exists DTaP,Tdap,and Td [...]
--- OUTSIDE RECORDS SUMMARY | 2025-02-23 11:13 | XMS_ITS | Patient Health Record ---
Author Organization [facility] Address [address] [facility] [place] [address] Care Team Providers Care Customer Sales Representative Name Role Phone Alfredo Ana MONAE Primary Care Provider Unavail able Keisha Camarena Unavailable [phone] Allergies Allergen (clinical drug ingredient) Drug/Non Drug Allergy documented on EMR Reaction Allergy Type Onset Date Status codeine Codeine Unknown Drug Allergy Active Latex Latex Unknown Allergy Active Reason For Referral No Information Medications Medication SIG (Take, Route, Frequency, Duration) Notes Start Date End Date Status Qakhyhm-Likvcnxvvia-Gwcgypk rol Active Ascorbic Acid Active Clobetasol Propionate 0.05 % 1 application Externally Twice a day Active metroNIDAZOLE 0.75 % 1 application Exter antonieta Twice a day Active cycloSPORINE 0.05 % 1 drop into affected eye Ophthalmic Twice a day Active [place]-3 Active Fluticasone Propionate 50 MCG/ACT 1 spray [...] Problem Status W/U Status Risk Notes Problem 159711711 Neuropathy (G62.9) Active confirmed Problem 690582631012223 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 Problem 642462573642911 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
--- OUTSIDE RECORDS SUMMARY | 2025-02-23 11:14 | XMS_ITS | Patient Health Record ---
Author Organization [facility] Address [address] [facility] [address] [place] [address] Care Team Providers Care Alterations Tailor Name Role Phone Denise Talley Primary Care [...] spray in each nostril Nasally BID Not-Taking [place] 3 1000 MG 1 capsule Orally BID [...] Problem Status W/U Status Risk Notes Problem [id number] Primary osteoarthrit is, right ankle and foot (M19.071) Active confirmed Problem 788998290 Primary osteoarthrit is, left ankle and foot (M19.072) Active confirmed Plan Of Treatment Pending Test Test Name Order Date X ray : Foot, left 3v 10/09/2021 X ray : Foot, right 3v 10/09/2021 DRAIN/INJECT, SMALL JOINT/BURSA 01/08/20 22 Insurance Providers Payer Name Payer Address Payer Phone Subscriber Number Group Number Insured Name Patient Relationship to Insured Coverage Start Date Coverage End Date [facility] [address] [place] [address] [phone] [id number] Maria E Hull Self - patient [...]
== END 2025-02-23 10:57 | disposition home or self-care (01) ==
LOC: HO.HOS 10:14
PROVIDERS: PCP Nurse Practitioner Family; Visit Provider Physical Medicine & Rehabilitation
DX: M16.12 Unilateral primary osteoarthritis, left hip (principal); M54.50 Low back pain, unspecified
CPT/HCPCS: 99203

== ENCOUNTER → 2025-02-23 10:13 | Outpatient (BNVA) | payer MEDICARE, SELFPAY | PROVIDERS: PCP Nurse Practitioner Family; Visit Provider Physical Medicine & Rehabilitation | DX: M16.12 Unilateral primary osteoarthritis, left hip (principal); M54.50 Low back pain, unspecified | CPT/HCPCS: 99202 ==

== ENCOUNTER 2025-03-08 12:05 | Outpatient (REF) | payer MEDICARE, SELFPAY ==
--- OUTSIDE RECORDS SUMMARY | 2025-03-12 12:36 | XMS_ITS ---
Author Organization [facility] Address [address] [address] Care Team Providers Care Water Supply Engineer Name Role Phone Denise Talley Primary Care Provider NICKY Villareal [phone] REASON FOR VISIT prescription renewal request Encounters Encounter Location Date Provider Diagnosis [facility] [address] [address] 09/28/2023 NICKY LYNCH Plan Of Treatment No Information Progress Notes * Luisa HULLB:1940 (82 yo F)Acc No.[id number]:09/28/2023 Patient:?Maria E HULL :1940???Age:82 Y???Sex:Female Address:[place] [address] * true * Date:? Generated for Courtneyi ronaldo/Claudia/eTransmitting on:?03/12/2025 12:36 PM EDT
--- OUTSIDE RECORDS SUMMARY | 2025-03-12 12:36 | XMS_ITS | Patient Health Record ---
Author Organization [facility] Address [address] [facility] [place] [address] Care Team Providers Care Water Fabricator Operator Name Role Phone Alfredo Ana MONAE Primary Care Provider Unavail able Keisha Camarena Unavailable [phone] Allergies Allergen (clinical drug ingredient) Drug/Non Drug Allergy documented on EMR Reaction Allergy Type Onset Date Status codeine Codeine Unknown Drug Allergy Active Latex Latex Unknown Allergy Active Reason For Referral No Information Medications Medication SIG (Take, Route, Frequency, Duration) Notes Start Date End Date Status Jstroqt-Iarfxdwitsg-Pobshlk rol Active Ascorbic Acid Active Clobetasol Propionate 0.05 % 1 application Externally Twice a day Active metroNIDAZOLE 0.75 % 1 application Exter antonieta Twice a day Active cycloSPORINE 0.05 % 1 drop into affected eye Ophthalmic Twice a day Active [place]-3 Active Fluticasone Propionate 50 MCG/ACT 1 spray [...] Problem Status W/U Status Risk Notes Problem [id number] Neuropathy (G62.9) Active confirmed Problem [id number] 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 Problem [id number] 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
--- OUTSIDE RECORDS SUMMARY | 2025-03-12 12:36 | XMS_ITS | Clinical Summary ---
Author Organization [facility] Address [address] [place] [address] Care Team Providers Care Shrimp Trawler Name Role Phone Unavailable Primary Care Provider Unavailabl e Surgical History Surgery Date Site/Laterality Comments HERNIA REPAIR 1959 PROCEDURE: HISTORICAL HERNIA REPAIR/ING; COMMENT: bilateral CHOLECYSTECTOMY 1998 PROCEDURE: HISTORICAL CHOLECYSTECTOMY ESOPHAGOGASTRODUODENOSCOPY 11/16/13 PROCEDURE: AK ESOPHAGOGASTRODUODENOSCOPY TRANSORAL DIAGNOSTIC; COMMENT: normal, with normal [...]
--- OUTSIDE RECORDS SUMMARY | 2025-03-12 12:36 | XMS_ITS | Continuity of Care Document ---
Author Organization [facility] Cec[place] Address [address] [place] [address]- Care Team Providers Care Splitting Machine Feeder Name Role Phone Alfredo RUSTIC FENCE BUILDER, Ana Suarez Primary Care Physician Encounter [facility] [place] [place] Date(s): 02/06/25 - 03/08/25 [facility] Cecilio Toribioley Adult [address] [place] [address]- Encounter Type: Triage Allergies, Adverse Reactions, Alerts Substance Criticality Severity Reaction Reaction Severity Status codeine itchiness; restlessness Active amoxicillin High criticality Severe A ctive Cats Active Pollen Active Immunizations Given and Recorded Vaccine Date Status Refusal Reason SARS-CoV-2(COVID-19)mRNA-LNP vac(ljw154) 12/28/24 Recorded SARS-CoV-2(COVID-19)mRNA-LNP vac(tua451) 06/28/24 Recorded SARS-CoV-2(COVID-19)mRNA-LNP vac(jer683) 08/06/23 Recorded influenza virus vaccine, inactivated 06/28/24 Jeff rded influenza virus vaccine, inactivated 06/17/23 Jeff rded influenza virus vaccine, inactivated 07/15/22 Jeff rded influenza virus vaccine, inactivated 07/22/21 Jeff rded influenza virus vaccine, inactivated 07/26/19 Jeff rded influenza virus vaccine, inactivated 07/08/18 Jeff rded influenza virus vaccine, inactivated 07/31/17 Jeff rded influenza virus vaccine, inactivated 07/03/16 Jeff rded influenza virus vaccine, inactivated 07/16/15 Jeff rded influenza virus vaccine, inactivated 07/17/13 Jeff rded influenza virus vaccine, inactivated 06/28/12 Jeff rded influenza virus vaccine, inactivated 07/28/11 Jeff rded influenza virus vaccine, inactivated 08/29/10 Jeff rded RSV vaccine, preF A-preF B, recombinant 06/17/23 R ecorded pneumococcal 20-valent conjugate vaccine 1 04/06/23 Given [id number] 12y+ bivalent booster vax 07/29/22 Recorded SARS-CoV-2 mRNA (csqmmyd-ibrw-kkiwv) vax 02/02/22 Recorded SARS-CoV-2 (COVID-19) mRNA BNT-162b2 vac 07/31/21 Recorded SARS-CoV-2 (COVID-19) mRNA BNT-162b2 vac 12/18/20 Given SARS-CoV-2 (COVID-19) mRNA BNT-162b2 vac 11/27/20 Recorded pneumococcal 13-valent vaccine 07/03/20 Recorded pneumococcal 13-valent vaccine 07/03/20 Recorded pneumococcal 13-valent vaccine 01/15/16 Recorded Influenza Virus Vaccine (oldterm) 06/25/20 Recorde d Influenza Virus Vaccine (oldterm) 06/25/20 Recorde d zoster vaccine, inactivated 11/01/18 Recorded zoster vaccine, inactivated 07/08/18 Recorded tetanus/diphtheria/pertussis, acel(Tdap) 08/18/17 Recorded Zoster Vaccine Live 07/25/12 Recorded tetanus-diphtheria toxoids (Td) 07/28/11 Recorded influ virus vac, H1N1, inactive(oldterm) 12/02/09 Recorded pneumococcal 23-valent vaccine 02/25/09 Recorded 1Result Comment: [id number] Medications Albuterol (Eqv-ProAir HFA) 90 mcg/inh inhalation aerosol 2 inhalation, Inhalation, Every 4 hours, PRN NEEDED, FORWHEEZING/SHORTNESS OF BREATH., # 25.5 Gm, 6 Refills, Maintenance, 01/24/25 5:42:00 PM EDT, [facility], 50, USE 2 INHALATIONS ORALLY EVERY 4 HOURS NEEDED FORWHEEZING/SHORTNESS OF BREATH, 149.8, cm, 01/17/25 8:41:00 EDT, Height, 63, kg, 03/03/23 11:02:00 EDT, Dry Weight Start Date: 01/24/25 Status: Ordered Quantity: 25.5 Unit: g Repeat number: 1 allopurinol 100 mg oral tablet 2, tablet, By Mouth, Daily, # 180 tablet, Refills 1, Maintenance, 09/15/24 8:35:00 AM EST, Route toPharmacy Electronically, [facility], 149, cm, 08/16/24 16:32:00 EDT, Height, 63, kg, 03/03/23 11:02:00 EDT, Dry Weight Start Date: 09/15/24 Status: Ordered Quantity: 180.0 Unit: tablet Repeat number: 1 amlodipine-olmesartan 5 mg-20 mg oral tablet 1 tablet, By Mouth, Daily, # 90 tablet, 0 Refills, Maintenance, 02/08/25 3:07:00 PM EDT, [facility], 90, 1 tablet By Mouth Daily, 149.8, cm, 01/17/25 8:41:00 EDT, Height, 63, kg, 03/03/23 11:02:00 EDT, Dry Weight Start Date: 02/08/25 Status: Ordered Quantity: 90.0 Unit: tablet Repeat number: 1 Breztri Aerosphere inhalation aerosol 2 puffs, Inhalation, 2 times a day, rinse mouth and throat after use, # 1 each, 11 Refills, Maintenance, 08/16/24 5:04:00 PM EDT, Aerosol, [facility], Partial fill upon patient request if the prescription is for a schedule II opioid drug., 2 puffs Inhalation 2 times a day,Instr:rinse mouth and throat after use, 149, cm, 08/16/24 16:32:00 EDT, Height, 63, kg, 03/03/23 11:02:00 EDT , Dry Weight Start Date: 08/16/24 Status: Ordered Quantity: 1.0 Unit: each Repeat number: 12 Centrum By Mouth, Daily, 0 Refills, Maintenance, 08/21/20 9:00:00 AM EDT Start Date: 08/21/20 Status: Ordered Repeat number: 1 cetirizine 10 mg oral tablet 1 tablet, By Mouth, Daily, # 90 tablet, 1 Refills, 01/29/22 8:03:00 AM EDT, [facility], 153, cm, 01/29/22 7:49:00 EDT, Height Start Date: 01/29/22 Status: Ordered Quantity: 90.0 Unit: tablet Repeat number: 2 ipratropium nasal 21 mcg/inh spray See Instructions, SPRAY 1 SPRAY INTO EACH NOSTRIL TWO TIMES A DAY, # 30 mL, 1 Refills, Maintenance,11/25/24 7:44:00 AM EST, [facility], 90, SPRAY 1 SPRAY INTO EACH NOSTRIL TWO TIMES A DAY, 149, cm, 11/01/24 8:05:00 EST, Height, 63, kg, 03/03/23 11:02:00 EDT, Dry Weight Start Date: 11/25/24 Status: Ordered Quantity: 30.0 Unit: mL Repeat number: 1 magic mouthwash magic mouthwash, See Instructions, # 90 mL, Refills 0, Tot. Refills 0, Maintenance, swish and spit 5ml every 4 hours as needed for canker sore, 01/17/25 9:00:00 AM EDT, please mis 30ml liquid benadrylwith 30ml lidocaine and 30 ml maalox, Supply, 149.8, cm, 01/17/25 8:41:00 EDT, Height, 63, kg, 03/03/23 11:02:00 EDT, Dry Weight Start Date: 01/17/25 Status: Ordered Quantity: 90.0 Unit: mL Repeat number: 1 magnesium oxide 400 mg oral tablet 1 tablet = 400 mg, By Mouth, Daily, 0 Refills, Maintenance, 10/19/23 7:48:00 AM EST Start Date: 10/19/23 Status: Ordered Repeat number: 1 MUSTARD SEED MUSTARD SEED, See Instructions, Refills 0, Maintenance, 10/19/23 7:48:00 AM EST, Supply Start Date: 10/19/23 Status: Ordered Repeat number: 1 Nebulizer/Compressor See Instructions, # 1 each, Refills 11, Tot. Refills 11, Maintenance, Nebulizer A7003 Neb Disp Set A7014 Neb non-Disp Filter A7005 Neb Non-Disp set A7015 Aerosol Mask A7013 Neb Disp Filter length of need lifetime 99 months for home use, 08/17/24 11:35:00 AM EDT, Supply Start Date: 08/17/24 Status: Ordered Quantity: 1.0 Unit: each Repeat number: 12 [place]-3 oral capsule 0 Refills, Maintenance, 08/21/20 9:00:00 AM EDT Start Date: 08/21/20 Status: Ordered Repeat number: 1 omeprazole 20 mg oral enteric coated capsule 1 capsule, By Mouth, Daily, # 90 capsule, 1 Refills, Maintenance, 02/06/25 9:01:00 AM EDT, [facility], 149.8, cm, 01/17/25 8:41:00 EDT, Height, 63, kg, 03/03/23 11:02:00 EDT, Dry Weight Start Date: 02/06/25 Status: Ordered Quantity: 90.0 Unit: capsule Repeat number: 2 Otezla = 30 mg, By Mouth, 2 times a day, 0 Refills, Maintenance, 10/28/20 3:04:00 PM EST Start Date: 10/28/20 Status: Ordered Repeat number: 1 simvastatin 10 mg oral tablet 1, tablet, By Mouth, Daily at bedtime, # 90 tablet, Refills 1, Maintenance, 12/07/24 1:29:00 PM EST,Route to Pharmacy Electronically, [facility], 149, cm, 11/01/24 8:05:00 EST, Height, 63, kg, 03/03/23 11:02:00 EDT, Dry Weight Start Date: 12/07/24 Status: Ordered Quantity: 90.0 Unit: tablet Repeat number: 1 sodium chloride 3% inhalation solution See Instructions, Use 1 nebulizer as needed every 2-4 hours for congestion, # 90 each, 4 Refills, Maintenance, 01/21/24 10:32:00 AM EDT, [facility], Partial fill upon patient requestif the prescription is for a schedule II opioid drug., 149, cm, 01/21/24 10:13:00 EDT, Height, 63, kg, 03/03/23 11:02:00 EDT, Dry Weight Start Date: 01/21/24 Status: Ordered Quantity: 90.0 Unit: each Repeat number: 5 Vitamin C By Mouth, Daily, 0 Refills, Maintenance, 08/21/20 9:00:00 AM EDT Start Date: 08/21/20 Status: Ordered Repeat number: 1 Problem List Condition Confirmation Course Effective Dates Status H ealth Status Informant Allergic rhinitis Confirmed Active Benign essential hypertension Confirmed Active Benign positional vertigo Confirmed Active Chronic constipation Confirmed Active Muscle cramps Confirmed Active GERD (gastroesophageal reflux disease) Confirmed Active Gout Confirmed Active Familial hyperlipidemia Confirmed Active Mitral valve regurgitation Confirmed Active Asthma, moderate persistent Confirmed Active Psoriasis Confirmed Active Dry eye syndrome Confirmed Active Social History Social History Type Response Smoking Status Never (less than 100 in lifetime) entered on: 08/21/20 Sex Sex Representation Female (finding) Patient Care team information Care Team Personnel Name: Ana Fuentes NP Position: S PCO Associate Professional Member Role: PCP Address: [address] [place] [id number] Telecom: Care Team Related Persons Name: JOVITA ANGUIANO Insurance Providers Guarantor name: YVON SILVIO Health Plan Information #: 1 Payer: YANDY RUBY PPO Member Number: NA Policy Number: NA Group Number: NA
--- OUTSIDE RECORDS SUMMARY | 2025-03-12 12:37 | XMS_ITS | Patient Health Record ---
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
--- OUTSIDE RECORDS SUMMARY | 2025-03-12 12:37 | XMS_ITS | Continuity of Care Document ---
Author Organization [facility] Address [address] [place] [address]- Care Team Providers Care Judge Clerk Name Role Phone Alfredo LENS GAUGER, Ana Suarez Primary Care Physician [place] [facility] [place](s): 02/09/25 - 03/11/25 [facility] [address] [place] [address] Attending Physician: Jewel Frank Admitting Physician: Jewel Frank Referring Physician: AdmJewel masterson Encounter Type: Triage Allergies, Adverse Reactions, Alerts Substance Criticality Severity Reaction Reaction Severity Status codeine itchiness; restlessness Active amoxicillin High criticality Severe A ctive Cats Active Pollen Active Immunizations Given and Recorded Vaccine Date Status Refusal Reason SARS-CoV-2(COVID-19)mRNA-LNP vac(wfv821) 12/28/24 Recorded SARS-CoV-2(COVID-19)mRNA-LNP vac(iku392) 06/28/24 Recorded SARS-CoV-2(COVID-19)mRNA-LNP vac(uao044) 08/06/23 Recorded influenza virus vaccine, inactivated 06/28/24 [...] pneumococcal 20-valent conjugate vaccine 1 04/06/23 Given [id number] 12y+ bivalent booster vax 07/29/22 Recorded SARS-CoV-2 mRNA (zikwouc-ufnc-zmpom) vax 02/02/22 Recorded SARS-CoV-2 (COVID-19) mRNA BNT-162b2 [...] pneumococcal 23-valent vaccine 02/25/09 Recorded 1Result Comment: [id number] Medications Albuterol (Eqv-ProAir HFA) 90 mcg/inh inhalation [...] Quantity: 1.0 Unit: each Repeat number: 12 [place]-3 oral capsule 0 Refills, Maintenance, 08/21/20 9:00:00 AM EDT Start Date: 08/21/20 Status: Ordered Repeat number: 1 omeprazole 20 mg oral enteric coated capsule 1 capsule, By Mouth, Daily, # 90 capsule, 1 Refills, Maintenance, 02/06/25 9:01:00 AM EDT, [facility], 149.8, cm, 01/17/25 8:41:00 EDT, [...] 12/07/24 1:29:00 PM EST,Route to Pharmacy Electronically, [facility], 149, cm, 11/01/24 8:05:00 EST, Height, 63, kg, 03/03/23 11:02:00 EDT, Dry Weight Start Date: 12/07/24 Status: Ordered Quantity: 90.0 Unit: tablet Repeat number: 1 sodium chloride 3% inhalation solution See Instructions, Use 1 nebulizer as needed every 2-4 hours for congestion, # 90 each, 4 Refills, Maintenance, 01/21/24 10:32:00 AM EDT, [facility], Partial fill upon patient requestif [...] Care team information Care Team Personnel Name: Alfredo MAN, Ana Suarez Position: [facility] PCO Associate Professional Member Role: PCP Address: [address] [place] [address]- Telecom: Care Team Related Persons Name: JOVITA ANGUIANO Insurance Providers Guarantor name: YVON ANGUIANO Health Plan Information #: 1 Payer: YANDY RUBY PPO Member Number: NA Policy Number: NA Group Number: NA
--- OUTSIDE RECORDS SUMMARY | 2025-03-12 12:37 | XMS_ITS | Continuity of Care Document ---
Author Organization [facility] [place] lt Address [address] [place] [address]- Care Team Providers Care Pe Teacher Name Role Phone Alfredo ELECTRICAL CHECKOUT MECHANIC, Ana Suarez Primary Care Physician [place] [facility] [place](s): 02/08/25 - 03/10/25 [facility] Cecilio Toribioley Adult [address] [place] [address]- Encounter Type: Triage Allergies, Adverse Reactions, Alerts Substance Criticality Severity Reaction Reaction Severity Status codeine itchiness; restlessness Active amoxicillin High criticality Severe A ctive Pollen Active Cats Active Immunizations Given and Recorded Vaccine Date Status Refusal Reason SARS-CoV-2(COVID-19)mRNA-LNP vac(owt163) 12/28/24 Recorded SARS-CoV-2(COVID-19)mRNA-LNP vac(dzp049) 06/28/24 Recorded SARS-CoV-2(COVID-19)mRNA-LNP vac(aeg287) 08/06/23 Recorded influenza virus vaccine, inactivated 06/28/24 [...] 06/28/12 Jeff rded influenza virus vaccine, inactivated 10/4/11 Jeff rded influenza virus vaccine, inactivated 08/29/10 Jeff rded RSV vaccine, preF A-preF B, recombinant 06/17/23 R ecorded pneumococcal 20-valent conjugate vaccine 1 04/06/23 Given [id number] 12y+ bivalent booster vax 07/29/22 Recorded SARS-CoV-2 mRNA (fweoacy-tjgz-fjgkt) vax 02/02/22 Recorded SARS-CoV-2 (COVID-19) mRNA BNT-162b2 [...] pneumococcal 23-valent vaccine 02/25/09 Recorded 1Result Comment: [id number] Medications Albuterol (Eqv-ProAir HFA) 90 mcg/inh inhalation [...] Quantity: 1.0 Unit: each Repeat number: 12 [place]-3 oral capsule 0 Refills, Maintenance, 08/21/20 9:00:00 AM EDT Start Date: 08/21/20 Status: Ordered Repeat number: 1 omeprazole 20 mg oral enteric coated capsule 1 capsule, By Mouth, Daily, # 90 capsule, 1 Refills, Maintenance, 02/06/25 9:01:00 AM EDT, [facility], 149.8, cm, 01/17/25 8:41:00 EDT, [...] PCO Associate Professional Member Role: PCP Address: [address] [place] [id number] Telecom: Care Team Related Persons Name: JOVITA ANGUIANO Insurance Providers Guarantor name: YVON ANGUIANO Health Plan Information #: 1 Payer: YANDY RUBY PPO Member Number: NA Policy Number: NA Group Number: NA
== END 2025-03-08 12:06 | disposition home or self-care (01) ==
LOC: HO.HOSX 12:05
PROVIDERS: Visit Provider Physician Assistant
DX: Z13.89 Encounter for screening for other disorder (principal)

== ENCOUNTER 2025-06-01 08:52 | Outpatient (REF) | payer MEDICARE, SELFPAY ==
--- NOTE | ~2025-06-01 | XR_ITS ---
EXAMINATION: XR LUMBAR SPINE 2-3 VIEWS HISTORY: M54.9 - Dorsalgia, unspecified COMPARISON: There are no prior studies for comparison. FINDINGS: AP, lateral, and coned down views of the lumbar spine are submitted. Osseous mineralization is normal. Five nonrib-bearing lumbar vertebral bodies are identified, maintaining normal height and alignment without evidence of fracture or spondylolisthesis. There is mild to moderate degenerative disc disease with disc space narrowing and osteophyte formation. The posterior elements are intact. There is calcification of the abdominal aorta. XR/XR lumbar spine 2-3V IMPRESSION: Mild to moderate degenerative disc disease. Electronically signed by: Chavo Cho MD 06/01/2025 09:47 AM EDT
--- NOTE | ~2025-06-01 | XR_ITS ---
EXAMINATION: XR BILATERAL HIPS WITH AP PELVIS CLINICAL INFORMATION: M25.559 - Pain in unspecified hip COMPARISON: 12/05/24 TECHNIQUE: AP view and frog-leg lateral views of each hip were obtained. FINDINGS: The pelvis is intact. Mild degenerative changes of the SI joints present. No bone lesions. RIGHT HIP: No fracture, dislocation, or suspicious bone lesion. Normal alignment. Normal joint space. No significant arthrosis identified. Femoral head is normal in contour without evidence of AVN. Normal acetabular coverage present. LEFT HIP: No fracture, dislocation, or suspicious bone lesion. Normal alignment. Normal joint space. Mild superolateral acetabular spurring. Femoral head is normal in contour without evidence of AVN. Normal acetabular coverage present. XR/XR hips VINCENZO min 3V IMPRESSION: 1. Normal pelvis. 2. 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 3. Normal right hip. Electronically signed by: Alfonso Powers MD 06/01/2025 09:42 AM EDT
== END 2025-06-01 08:53 | disposition home or self-care (01) ==
LOC: HO.HOSX 08:52
PROVIDERS: PCP Nurse Practitioner Family; Visit Provider Physical Medicine & Rehabilitation
DX: M47.816 Spondylosis without myelopathy or radiculopathy, lumbar region (principal); M70.62 Trochanteric bursitis, left hip; M25.552 Pain in left hip; M54.9 Dorsalgia, unspecified
CPT/HCPCS: 20610; 72100; 73522; 99212; J2003; J3301

== ENCOUNTER 2025-06-01 08:52 | Outpatient (AMB) | payer MEDICARE, SELFPAY ==
[2025-06-01 09:01] VITALS: BMI 26.3
--- NOTE | 2025-06-01 09:01 | A.OFFVIS_ITS ---
Vital Signs 06/01/25 09:01 Height 4 ft 11 in Weight 130 lb BMI 26.3 Intake Visit Reasons: OV-Lower back follow up 3 months Intake Note: Maria E is a 84 year old female who presents today as a 3 month up follow up for Lower back pain s/p left intra-articular injection,12/21/24. At today's visit she states injection helped and lasted until mid February and then her back returned and has progressivly worsen. States pain in triggered by prolong sitting and from sit to stand. Allergies amoxicillin Allergy (Verified 06/01/25 09:09) hives codeine Allergy (Verified 06/01/25 09:09) Anxiety Medication List - Last Reconciled 06/01/25 by Courtney Rodriguez MD allopurinol 200 mg PO DAILY amlodipine-olmesartan 5-20 mg 1 tab PO DAILY apremilast (Otezla) 30 mg PO BID clobetasol 0.05% 1 appl topical BID fluticasone propionate 50 mcg/actuation sprays intranasal rvqirgpvomc-hptaplrrj-ndkvddaa 100-62.5-25 mcg (Trelegy Ellipta) 1 inh inhalation DAILY ipratropium bromide intranasal metronidazole 0.75% 1 appl topical BEDTIME omeprazole 20 mg PO BID simvastatin 10 mg PO BEDTIME HPI Comments Details: Patient previously seen for lower back, left sided, going down to left foot. She had intraarticular injection under fluuor, by [facility], on 12/21/24. That helped even the back pain and leg pain. However, patient reports that she was disappointed the improvement from pain only lasted a few months. She is again having left-sided back pain that wraps around the hip going down to the thigh. Denies groin pain. She is still active. No gait change. No weakness. [facility] Medical History (Updated 06/01/25 @ 14:12 by Courtney Rodriguez MD) Lumbar spondylosis High blood pressure Gout Asthma High cholesterol Social History (Reviewed 06/01/25 @ 09:10 by Carolyn Elaine [facility]) Alcohol intake: current Alcohol intake frequency: holidays/special occasions only Patient Tobacco Use Status: Never used Tobacco Current occupational status: retired Current occupation: rt hand / Physical Exam Vital Signs: BMI result Body Mass Index 26.3 Constitutional: Patient appears to be in no acute distress, well nourished and well developed. Patient was appropriately conversant and oriented. Good historian. MSK: No specific abnormalities found on inspection of the spine and all extremities. She had tenderness over left GT which she described as sore. Neurological: Cotter?s negative bilaterally. Babinski was down going bilaterally. Clonus was negative. Gait is non-antalgic without loss of balance. Office Procedures AMB Joint Injection/Aspiration Joint Injection/Aspiration Details: Consent obtained. Patient lies on unaffected right side with lower leg flexed and upper leg extended. Tender area over the left greater trochanter is identified and marked. Area is cleansed with betadine solution. Using a 27 gauge needle, 3 ml of 2% lidocaine is injected, with the needle perpendicular to center of tender area. Then, using a spinal needle, 40 mg Kenalog is injected perpendicularly at center of tender area and slightly touching bone of greater trochanter. Patient tolerated procedure well without complications. Post-injection instructions given. Injected: 40 mg of, Kenalog and with 3 mL of (2% lidocaine) Procedure: The patient tolerated the procedure well Coding 91675 - Large joint Procedure code (CPT) selection complete Results Reviewed Results Reviewed: Ordering Physician: Courtney Mitchell Date of Service: 06/01/25 Procedure(s): XR lumbar spine 2-3V Accession Number(s): [id number] cc: Ana Fuentes SERVICE CENTER SUPERVISOR; Courtney Kelly EXAMINATION: XR LUMBAR SPINE 2-3 VIEWS HISTORY: M54.9 - Dorsalgia, unspecified COMPARISON: There are no prior studies for comparison. FINDINGS: AP, lateral, and coned down views of the lumbar spine are submitted. Osseous mineralization is normal. Five nonrib-bearing lumbar vertebral bodies are identified, maintaining normal height and alignment without evidence of fracture or spondylolisthesis. There is mild to moderate degenerative disc disease with disc space narrowing and osteophyte formation. The posterior elements are intact. There is calcification of the abdominal aorta. XR/XR lumbar spine 2-3V IMPRESSION: Mild to moderate degenerative disc disease. Electronically signed by: Chavo Cho MD 06/01/2025 09:47 AM EDT RP Ordering Physician: Courtney Mitchell Date of Service: 06/01/25 Procedure(s): XR hips VINCENZO min 3V Accession Number(s): [id number] cc: Ana Fuentes NP; Courtney Mitchell~ EXAMINATION: XR BILATERAL HIPS WITH AP PELVIS CLINICAL INFORMATION: M25.559 - Pain in unspecified hip COMPARISON: 12/05/24 TECHNIQUE: AP view and frog-leg lateral views of each hip were obtained. FINDINGS: The pelvis is intact. Mild degenerative changes of the SI joints present. No bone lesions. RIGHT HIP: No fracture, dislocation, or suspicious bone lesion. Normal alignment. Normal joint space. No significant arthrosis identified. Femoral head is normal in contour without evidence of AVN. Normal acetabular coverage present. LEFT HIP: No fracture, dislocation, or suspicious bone lesion. Normal alignment. Normal joint space. Mild superolateral acetabular spurring. Femoral head is normal in contour without evidence of AVN. Normal acetabular coverage present. XR/XR hips VINCENZO min 3V IMPRESSION: 1. Normal pelvis. 2. 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 3. Normal right hip. Electronically signed by: Alfonso Powers MD 06/01/2025 09:42 AM EDT RP Ordering Physician: Gilda Ghosh PA-C Date of Service: 12/05/24 Procedure(s): XR hip LT min 2V Accession Number(s): [id number] cc: Ana Fuentes SERVICE CENTER SUPERVISOR; Gilda Ghosh PA-C~ CLINICAL HISTORY: M25.559 - Pain in unspecified hip 2 view left hip Comparison: None Findings: No acute fracture or dislocation. Mild osteoarthritic changes in the left hip and hemipelvis. The soft tissues are unremarkable. IMPRESSION: No acute findings. This document has been electronically signed by: Mt Fields MD on 12/06/2024 04:16:33 I reviewed records from the following: [facility]vention radiology Assessment & Plan Assessment & Plan (1) Trochanteric bursitis, left hip: Code(s): M70.62 - Trochanteric bursitis, left hip Category: Medical (2) Lumbar spondylosis: Code(s): M47.816 - Spondylosis without myelopathy or radiculopathy, lumbar region Category: Medical Plan Recent x-ray only showed mild arthritis and patient denies groin pain. She maintains that the pain is more lateral wrapping around from the back to the hip area. Repeat x-rays done today, again showing only minimal arthritis in the hips. Disc spaces were maintained on lumbar x-rays. No compression deformity seen. She does have tenderness over trochanter. Suggested trial of steroid injection today. Patient eager to proceed. Patient tolerated procedure well. We will re-evaluate in a month. Assessment and plan discussed with patient, and patient was agreeable. All questions were answered thoroughly. Total of 60 minutes spent today including chart review, results review, history taking, physical examination, discussion of assessment and plan, and coordination of care. [ ] Courtney Rodriguez MD, ORTIZ Board Certified, [place] Board [employer] Physical Medicine and Rehabilitation (ABPMR) Board Certified, [place] Board [employer] Electrodiagnostic Medicine (ABEM) Orders: Orders XR hips VINCENZO min 3V Today M25.559 - Pain in unspecified hip XR lumbar spine 2-3V Today M54.9 - Dorsalgia, unspecified AMB Joint Injection/Aspiration Today M70.62 - Trochanteric bursitis, left hip Coding Level of Care Code Est Pt Level 5 (70531) Diagnoses Trochanteric bursitis, left hip M70.62 Lumbar spondylosis M47.816 CPT Codes Coding - 89843 Large joint: 53563 - Large joint ([id number])
--- OUTSIDE RECORDS SUMMARY | 2025-06-01 09:06 | XMS_ITS | Clinical Summary ---
Author Organization [facility] it Address [address] [place] [address] Care Team Providers Care Tiltrotor Crew Chief Name Role Phone Unavailable Primary Care Provider Unavailabl e Surgical History Surgery Date Site/Laterality Comments HERNIA REPAIR 1959 PROCEDURE: HISTORICAL HERNIA REPAIR/ING; COMMENT: bilateral CHOLECYSTECTOMY 1998 PROCEDURE: HISTORICAL CHOLECYSTECTOMY ESOPHAGOGASTRODUODENOSCOPY 11/16/13 PROCEDURE: SD ESOPHAGOGASTRODUODENOSCOPY TRANSORAL DIAGNOSTIC; COMMENT: normal, with normal [...] COVID-19 Vaccine ( - 2023- season) 2024 Depression Screening 10/25/2024 Influenza Vaccine (#1) 2025 9, 07/16/2015, 07/17/2013, Additional history exists DTaP,Tdap,and [...]
--- OUTSIDE RECORDS SUMMARY | 2025-06-01 09:06 | XMS_ITS | Patient Health Record ---
Author Organization [facility] Address [address] [place] [address] Care Team Providers Care Upholstery Auto Trimmer Name Role Phone AlfredoAna Primary Care Provider Keisha Zuleta Unavailable [phone] Allergies Allergen (clinical drug ingredient) Drug/Non Drug Allergy documented on EMR Reaction Allergy Type Onset Date Status codeine Codeine Unknown Drug Allergy Active Latex Latex Unknown Allergy Active Reason For Referral No Information Medications Medication SIG (Take, Route, Frequency, Duration) Notes Start Date End Date Status Sredoeo-Oedhflbskkb-Oufrqbm rol Active Ascorbic Acid Active Clobetasol Propionate 0.05 % 1 application Externally Twice a day Active metroNIDAZOLE 0.75 % 1 application Exter antonieta Twice a day Active cycloSPORINE 0.05 % 1 drop into affected eye Ophthalmic Twice a day Active [place]-3 Active Fluticasone Propionate 50 MCG/ACT 1 spray in each nostril Nasally Once a day; Duration: 30 day(s) Active Multivitamin Active Simvastatin 10 MG 1 tablet in the even ing Orally Once a day; Duration: 30 day(s) Active Allopurinol 100 MG 1 tablet Orally Once a day; Duration: 30 day(s) Active Omeprazole 20 MG 1 capsule 30 minutes before morning meal Orally Once a day; Duration: 30 day(s) Active Albuterol Sulfate HFA 108 (90 Base) MCG/ACT 1 puff as needed Inhalation every 4 hrs Active Gabapentin Active Apremilast 30 MG 1 tablet Orally Twic e a day; Duration: 30 day(s) Active Symbicort Active amLODIPine-Olmesartan 5-20 MG 1 tablet Orally Once a day; Duration: 30 day(s) Active Social History Tobacco Use: [...] Problem Status W/U Status Risk Notes Problem Neuropathy (937037350) Neuropathy (G62.9) Active confirmed Problem Chronic gouty arthritis (31257140) 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 Problem Chronic gouty arthritis (77954083) Idiopathic chronic gout of right foot without tophus (M1A.0710) Active confirmed Plan Of Treatment No Information Insurance Providers Payer Name Payer Address Payer Phone Subscriber Number Group Number Insured Name Patient Relationship to Insured Coverage Start Date Coverage End Date [facility] 65 Medicare Preferred [address] [place] [address] [id number] Maria E Hull Self - patient is the insured Medical (General) History Medical History History ICD Code Arthritis asthma Gout High blood pressure Psoriasis/eczema chronic sinusitis Chicken pox Surgical History Surgery Date(Month/Year) gall bladder 1998 hernia 1961
--- OUTSIDE RECORDS SUMMARY | 2025-06-01 09:06 | XMS_ITS | Patient Health Record ---
Author Organization [facility] Address [address] [place] [address] Care Team Providers Care Bottle Selector Name Role Phone Denise Talley Primary Care [...] right big toe joint Externally Twice a day; Duration: 30 days 2 Active Vitamin D 50 MCG (2000 UT) 1 capsule Orally Once a day Active Vitamin C 1000 MG as directed Orally Active Allopurinol 100 MG 2 tablet Orally Once a day; Duration: 30 day(s) Active amLODIPine-Olmesartan 5-20 MG 1 tablet Orally Once a day Active Otezla 30 MG 1 tablet Orally Twice a day Active Tacrolimus 0.1 % 1 application Externally Once a day Apply sparingly twice a day to psoriasis on eyelids and face if itchy Not-Taking predniSONE 10 MG (21) as directed Orally daily; Duration: 6 days Take 6 tabs on the first day, 5 tabs on the second day, 4 tabs on the 3rd day, 3 days of the 4th day, two tabs on the 5th day, and one tab on the 6th day Not-Taking Diclofenac Sodium 1 % as directed Externally place 1 g onto the skin 2 times daily Not-Taking Adalimumab 40 MG/0.4ML as directed Subcutaneous inject 40 mg into the skin every 14 days Not-Taking Fluticasone Propionate 50 MCG/ACT 1 spray in each nostril Nasally BID Not-Taking [place] 3 1000 MG 1 capsule Orally BID [...] Problem Status W/U Status Risk Notes Problem Localized, primary osteoarthritis of the ankle and/or foot (457027353) Primary osteoarthrit is, right ankle and foot (M19.071) Active confirmed Problem Localized, primary osteoarthritis of the ankle and/or foot (135543956) Primary osteoarthrit is, left ankle and foot (M19.072) Active confirmed Plan Of Treatment Pending Test Test Name Order Date X ray : Foot, left 3v 10/09/2021 X ray : Foot, right 3v 10/09/2021 DRAIN/INJECT, SMALL JOINT/BURSA 01/08/20 22 Insurance Providers Payer Name Payer Address Payer Phone Subscriber Number Group Number Insured Name Patient Relationship to Insured Coverage Start Date Coverage End Date [facility] [address] [place] [address] [phone] [id number] Maria E Hull Self - patient is the insured Medications Administered Medication Instructions Date of Administration Dosage Notes Dexamethasone 01/07/2022 0.5 mL Kenalog 01/07/2022 0.5 mL Medical (General) History Medical History History ICD Code 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
== END 2025-06-01 09:56 | disposition home or self-care (01) ==
LOC: HO.HOS 08:53
PROVIDERS: PCP Nurse Practitioner Family; Visit Provider Physical Medicine & Rehabilitation
DX: M70.62 Trochanteric bursitis, left hip (principal); M47.816 Spondylosis without myelopathy or radiculopathy, lumbar region
CPT/HCPCS: 20610; 99215

== ENCOUNTER → 2025-06-01 09:20 | Outpatient (BNV) | payer MEDICARE, SELFPAY | PROVIDERS: PCP Nurse Practitioner Family; Visit Provider Radiology Diagnostic Radiology | DX: M54.9 Dorsalgia, unspecified (principal); M25.551 Pain in right hip; M25.552 Pain in left hip | CPT/HCPCS: 72100; 73522 ==

== ENCOUNTER 2025-07-06 08:42 | Outpatient (AMB) | payer MEDICARE, SELFPAY ==
--- NOTE | 2025-07-06 08:56 | A.OFFVIS_ITS ---
Vital Signs 07/06/25 09:00 Height 4 ft 11 in Weight 130 lb BMI 26.3 Intake Visit Reasons: OV- 1 Month f/up from steroid injection in LT Hip Intake Note: Maria E is a 84 year old female who presents today as a 1 month follow up from her steroid injection in her left hip. At today's visit she states that the injection helped relieve the pain. She states no pain or discomfort to report at this time. She added that for the past six months both feet have a warm sensation that is very sporadic. Allergies amoxicillin Allergy (Verified 07/06/25 09:00) hives codeine Allergy (Verified 07/06/25 09:00) Anxiety Medication List - Last Reconciled 07/06/25 by Courtney Rodriguez MD allopurinol 200 mg PO DAILY amlodipine-olmesartan 5-20 mg 1 tab PO DAILY apremilast (Otezla) 30 mg PO BID clobetasol 0.05% 1 appl topical BID fluticasone propionate 50 mcg/actuation sprays intranasal gudnzaqnzkt-zfrdeedex-oihcaajm 100-62.5-25 mcg (Trelegy Ellipta) 1 inh inhalation DAILY ipratropium bromide intranasal metronidazole 0.75% 1 appl topical BEDTIME omeprazole 20 mg PO BID simvastatin 10 mg PO BEDTIME HPI Comments Details: She had intraarticular injection under fluuor, by [facility], on 12/21/24. That helped even the back pain and leg pain. However, patient reported that she was disappointed the improvement from pain only lasted a few months. She was again having left-sided back pain that wraps around the hip going down to the thigh. Denied groin pain. She is still active. No gait change. No weakness. We trialed left greater trochanter injection last visit 06/01/2025. Patient reports 100% improvement, no pain currently. No radiation down the legs. No groin pain. No back pain. She did mentioned on and off burning on both feet when she is lying down, intermittent only, not associated with walking. She denies weakness. [facility] Medical History (Updated 06/01/25 @ 14:12 by Courtney Rodriguez MD) Lumbar spondylosis High blood pressure Gout Asthma High cholesterol Social History (Reviewed 06/01/25 @ 09:10 by GARETH Malhotra Alcohol intake: current Alcohol intake frequency: holidays/special occasions only Patient Tobacco Use Status: Never used Tobacco Current occupational status: retired Current occupation: rt hand / Physical Exam Vital Signs: BMI result Body Mass Index 26.3 Results Reviewed Results Reviewed: Ordering Physician: Courtney Mitchell Date of Service: 06/01/25 Procedure(s): XR lumbar spine 2-3V Accession Number(s): [id number] cc: Ana Fuentes NP; Courtney Mitchell~ EXAMINATION: XR LUMBAR SPINE 2-3 VIEWS HISTORY: M54.9 - Dorsalgia, unspecified COMPARISON: There are no prior studies for comparison. FINDINGS: AP, lateral, and coned down views of the lumbar spine are submitted. Osseous mineralization is normal. Five nonrib-bearing lumbar vertebral bodies are identified, maintaining normal height and alignment without evidence of fracture or spondylolisthesis. There is mild to moderate degenerative disc disease with disc space narrowing and osteophyte formation. The posterior elements are intact. There is calcification of the abdominal aorta. XR/XR lumbar spine 2-3V IMPRESSION: Mild to moderate degenerative disc disease. Electronically signed by: Chavo Cho MD 06/01/2025 09:47 AM EDT RP Ordering Physician: Courtney Mitchell Date of Service: 06/01/25 Procedure(s): XR hips VINCENZO min 3V Accession Number(s): [id number] cc: Ana Fuentes NP; Courtney Kelly EXAMINATION: XR BILATERAL HIPS WITH AP PELVIS CLINICAL INFORMATION: M25.559 - Pain in unspecified hip COMPARISON: 12/05/24 TECHNIQUE: AP view and frog-leg lateral views of each hip were obtained. FINDINGS: The pelvis is intact. Mild degenerative changes of the SI joints present. No bone lesions. RIGHT HIP: No fracture, dislocation, or suspicious bone lesion. Normal alignment. Normal joint space. No significant arthrosis identified. Femoral head is normal in contour without evidence of AVN. Normal acetabular coverage present. LEFT HIP: No fracture, dislocation, or suspicious bone lesion. Normal alignment. Normal joint space. Mild superolateral acetabular spurring. Femoral head is normal in contour without evidence of AVN. Normal acetabular coverage present. XR/XR hips VINCENZO min 3V IMPRESSION: 1. Normal pelvis. 2. 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 3. Normal right hip. Electronically signed by: Alfonso Powers MD 06/01/2025 09:42 AM EDT RP Assessment & Plan Assessment & Plan (1) Trochanteric bursitis, left hip: Code(s): M70.62 - Trochanteric bursitis, left hip Category: Medical (2) Lumbar spondylosis: Code(s): M47.816 - Spondylosis without myelopathy or radiculopathy, lumbar region Category: Medical Plan Left greater trochanter bursitis resolved with injection. Patient is happy with her improvement. Noted results in lumbar spine, degenerative disc most likely. But patient denies any back pain. No weakness. Did mention intermittent burning on both feet when lying down. We will continue to monitor this. As long as patient does not have lower back pain, no need for intervention for lumbar spine or further imaging. Assessment and plan discussed with patient, and patient was agreeable. All questions were answered thoroughly. Follow up 2 months. Courtney Rodriguez MD, ORTIZ Board Certified, [place] Board of Physical Medicine and Rehabilitation (ABPMR) Board Certified, [place] Board of Electrodiagnostic Medicine (ABEM) Coding Level of Care Code Est Pt Level 3 (41484) Diagnoses Trochanteric bursitis, left hip M70.62 Lumbar spondylosis M47.816
[2025-07-06 09:00] VITALS: BMI 26.3
--- OUTSIDE RECORDS SUMMARY | 2025-07-06 09:23 | XMS_ITS | Patient Health Record ---
Author Organization [facility] Address [address] [place] [address] Care Team Providers Care Sustainability Purchasing Agent Name Role Phone Denise Talley Primary [...] spray in each nostril Nasally BID Not-Taking [place] 3 1000 MG 1 capsule Orally BID [...] primary osteoarthritis of the ankle and/or foot (194628543) Primary osteoarthrit is, right ankle and foot (M19.071) Active confirmed Problem Localized, primary osteoarthritis of the ankle and/or foot (430636478) Primary osteoarthrit is, left ankle and foot (M19.072) Active confirmed Plan Of Treatment Pending Test Test Name Order Date X ray : Foot, left 3v 10/09/2021 X ray : Foot, right 3v 10/09/2021 DRAIN/INJECT, SMALL JOINT/BURSA 01/08/20 22 Insurance Providers Payer Name Payer Address Payer Phone Subscriber Number Group Number Insured Name Patient Relationship to Insured Coverage Start Date Coverage End Date [facility] and [facility] [address] [place] [address] [phone] [id number] Marai E Hull Self - patient is the [...]
--- OUTSIDE RECORDS SUMMARY | 2025-07-06 09:23 | XMS_ITS | Clinical Summary ---
Author Organization [facility] it Address [address] [place] [address] Care Team Providers Care Paid Search Analyst Name Role Phone Unavailable Primary Care Provider Unavailabl e Surgical History Surgery Date Site/Laterality Comments HERNIA REPAIR 1959 PROCEDURE: HISTORICAL HERNIA REPAIR/ING; COMMENT: bilateral CHOLECYSTECTOMY 1998 PROCEDURE: HISTORICAL CHOLECYSTECTOMY ESOPHAGOGASTRODUODENOSCOPY 11/16/13 PROCEDURE: NM ESOPHAGOGASTRODUODENOSCOPY TRANSORAL DIAGNOSTIC; COMMENT: normal, with normal [...] Patients (1 - 1-dose 75+ series) 2015 Depression Screening 10/25/2024 COVID-19 Vaccine ( - 2023- season) 2025 Influenza Vaccine (#1) 2025 9, 07/16/2015, 07/17/2013, [...]
--- OUTSIDE RECORDS SUMMARY | 2025-07-06 09:23 | XMS_ITS | Patient Health Record ---
Author Organization [facility] Address [address] [place] [address] Care Team Providers Care Zigzag Machine Operator Name Role Phone AlfredoAna Primary Care Provider Keisha Zuleta Unavailable [phone] Allergies Allergen (clinical drug ingredient) Drug/Non Drug Allergy documented on EMR Reaction Allergy Type Onset Date Status codeine Codeine Unknown Drug Allergy Active Latex Latex Unknown Allergy Active Reason For Referral No Information Medications Medication SIG (Take, Route, Frequency, Duration) Notes Start Date End Date Status Ubnrtdh-Duaeegruhdu-Ohkvahw rol Active Ascorbic Acid Active Clobetasol Propionate 0.05 % 1 application Externally Twice a day Active metroNIDAZOLE 0.75 % 1 application Exter antonieta Twice a day Active cycloSPORINE 0.05 % 1 drop into affected eye Ophthalmic Twice a day Active [place]-3 Active Fluticasone Propionate 50 MCG/ACT 1 spray [...] Status W/U Status Risk Notes Problem Neuropathy (707085403) Neuropathy (G62.9) Active confirmed Problem Chronic gouty arthritis (25541583) 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 Problem Chronic gouty arthritis (23946283) Idiopathic chronic gout of right foot without tophus (M1A.0710) Active confirmed Plan Of Treatment No Information Insurance Providers Payer Name Payer Address Payer Phone Subscriber Number Group Number Insured Name Patient Relationship to Insured Coverage Start Date Coverage End Date [facility] 65 Medicare Preferred [address] [place] [address] [id number] Maria E Hull Self - patient is the insured Medical (General) History Medical History History ICD Code Arthritis asthma Gout High blood pressure Psoriasis/eczema chronic sinusitis Chicken pox Surgical History Surgery Date(Month/Year) gall bladder 1998 hernia 1961
== END 2025-07-06 09:12 | disposition home or self-care (01) ==
LOC: HO.HOS 08:42
PROVIDERS: PCP Nurse Practitioner Family; Visit Provider Physical Medicine & Rehabilitation
DX: M70.62 Trochanteric bursitis, left hip (principal); M47.816 Spondylosis without myelopathy or radiculopathy, lumbar region
CPT/HCPCS: 99213

== ENCOUNTER → 2025-07-06 08:42 | Outpatient (BNVA) | payer MEDICARE, SELFPAY | PROVIDERS: PCP Nurse Practitioner Family; Visit Provider Physical Medicine & Rehabilitation | DX: M70.62 Trochanteric bursitis, left hip (principal); M47.816 Spondylosis without myelopathy or radiculopathy, lumbar region | CPT/HCPCS: 99212 ==

== ENCOUNTER 2025-09-13 08:57 | Outpatient (AMB) | payer MEDICARE, SELFPAY ==
--- NOTE | 2025-09-13 09:07 | MHC.OFFVIS ---
Intake Visit Reasons: OV- Follow up for her LT Hip pain Intake Note: Maria E is a 84 year old female who presents today as a follow up for her left Hip pain. At today's visit she states that for the past two weeks she feels that her bilateral leg pain feels weak/unsteady. She states that the weakness got to a point where she did not feel safe to walk long distances. Patient states that she would like to discuss her right foot/Great toe and if she could be referred to Podiatry for her right foot/great toe. She noted that since last visit her feet no longer have the burning sensation. Allergies amoxicillin Allergy (Verified 07/06/25 09:00) hives codeine Allergy (Verified 07/06/25 09:00) Anxiety Medication List - Last Reconciled 09/13/25 by Courtney Rodriguez MD allopurinol 200 mg PO DAILY amlodipine-olmesartan 5-20 mg 1 tab PO DAILY apremilast (Otezla) 30 mg PO BID clobetasol 0.05% 1 appl topical BID fluticasone propionate 50 mcg/actuation sprays intranasal tthnxqsiarc-runwgdfma-cthuvhyq 100-62.5-25 mcg (Trelegy Ellipta) 1 inh inhalation DAILY ipratropium bromide intranasal metronidazole 0.75% 1 appl topical BEDTIME omeprazole 20 mg PO BID simvastatin 10 mg PO BEDTIME HPI Comments Details: She had intraarticular injection under fluuor, by [facility], on 12/21/24. That helped even the back pain and leg pain. However, patient reported that she was disappointed the improvement from pain only lasted a few months. She was again having left-sided back pain that wraps around the hip going down to the thigh. Denied groin pain. She is still active. No gait change. No weakness. We trialed left greater trochanter injection last 06/01/2025. Patient reports 100% improvement. No radiation down the legs. No groin pain. No back pain. She did mentioned on and off burning on both feet when she is lying down, intermittent only, not associated with walking. She denies weakness. She had left thigh pain 2 weeks ago, but that has now resolved. She feels that legs feel weak, feels like she'd lose balance, but on/off only. Denies feet numbness, but but mentions issue left big toe nail issue. No back pain. No bladder/bowel incontinence. COUNTS INCLUDE 234 BEDS AT THE [facility] Medical History (Updated 09/13/25 @ 09:20 by Courtney Rodriguez MD) Lumbar spondylosis High blood pressure Gout Asthma High cholesterol Social History Alcohol intake: current Alcohol intake frequency: holidays/special occasions only Patient Tobacco Use Status: Never used Tobacco Current occupational status: retired Current occupation: rt hand / Physical Exam Constitutional: Patient appears to be in no acute distress, well nourished and well developed. Patient was appropriately conversant and oriented. Good historian. Neurological: Cotter?s negative bilaterally. Babinski was down going bilaterally. Clonus was negative. Gait is non-antalgic without loss of balance. Results Reviewed Results Reviewed: Ordering Physician: Courtney Mitchell Date of Service: 06/01/25 Procedure(s): XR lumbar spine 2-3V Accession Number(s): [id number] cc: Ana Fuentes NP; Courtney Kelly EXAMINATION: XR LUMBAR SPINE 2-3 VIEWS HISTORY: M54.9 - Dorsalgia, unspecified COMPARISON: There are no prior studies for comparison. FINDINGS: AP, lateral, and coned down views of the lumbar spine are submitted. Osseous mineralization is normal. Five nonrib-bearing lumbar vertebral bodies are identified, maintaining normal height and alignment without evidence of fracture or spondylolisthesis. There is mild to moderate degenerative disc disease with disc space narrowing and osteophyte formation. The posterior elements are intact. There is calcification of the abdominal aorta. XR/XR lumbar spine 2-3V IMPRESSION: Mild to moderate degenerative disc disease. Electronically signed by: Chavo Cho MD 06/01/2025 09:47 AM EDT RP Ordering Physician: Courtney Mitchell Date of Service: 06/01/25 Procedure(s): XR hips VINCENZO min 3V Accession Number(s): [id number] cc: Ana Fuentes NP; Courtney Mitchell~ EXAMINATION: XR BILATERAL HIPS WITH AP PELVIS CLINICAL INFORMATION: M25.559 - Pain in unspecified hip COMPARISON: 2/11/25 TECHNIQUE: AP view and frog-leg lateral views of each hip were obtained. FINDINGS: The pelvis is intact. Mild degenerative changes of the SI joints present. No bone lesions. RIGHT HIP: No fracture, dislocation, or suspicious bone lesion. Normal alignment. Normal joint space. No significant arthrosis identified. Femoral head is normal in contour without evidence of AVN. Normal acetabular coverage present. LEFT HIP: No fracture, dislocation, or suspicious bone lesion. Normal alignment. Normal joint space. Mild superolateral acetabular spurring. Femoral head is normal in contour without evidence of AVN. Normal acetabular coverage present. XR/XR hips VINCENZO min 3V IMPRESSION: 1. Normal pelvis. 2. 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 3. Normal right hip. Electronically signed by: Alfonso Powers MD 06/01/2025 09:42 AM EDT RP Assessment & Plan Assessment & Plan (1) Spinal stenosis, lumbar region with neurogenic claudication: Code(s): M48.062 - Spinal stenosis, lumbar region with neurogenic claudication Category: Medical Plan We have suspected lumbar spinal stenosis in the past but since she did not have any neurologic deficits or even any back pain, we have deferred obtaining a lumbar MRI. However she has been reporting more episodes of pain and loss of balance recently. It is reasonable at this time to confirm whether she has lumbar spinal stenosis or not by getting an MRI. Discussed fall precautions. Referring her to podiatry as well for her left big toe. Assessment and plan discussed with patient, and patient was agreeable. All questions were answered thoroughly. Follow up after MRI. Courtney Rodriguez MD, ORTIZ Board Certified, [place] Board of Physical Medicine and Rehabilitation (ABPMR) Board Certified, [place] Board of Electrodiagnostic Medicine (ABEM) Orders: Orders MR lumbar spine wo con Today M48.062 - Spinal stenosis, lumbar region with neurogenic claudication Referrals Podiatry Referral B35.1 - Tinea unguium Coding Level of Care Code Est Pt Level 4 (23180) Diagnoses Spinal stenosis, lumbar region with neurogenic claudication M48.062
--- OUTSIDE RECORDS SUMMARY | 2025-09-13 10:49 | XMS_ITS | Patient Health Record ---
Author Organization [facility] Address [address] [place] [address] Care Team Providers Care Product Promoter Retail Pet Name Role Phone AlfredoAna Primary Care Provider Keisha Zuleta Unavailable [phone] Allergies Allergen (clinical drug ingredient) Drug/Non Drug Allergy documented on EMR Reaction Allergy Type Onset Date Status codeine Codeine Unknown Drug Allergy Active Latex Latex Unknown Allergy Active Reason For Referral No Information Medications Medication SIG (Take, Route, Frequency, Duration) Notes Start Date End Date Status Cmpaonw-Nvbnnfyjumh-Pqbgiza rol Active Ascorbic Acid Active Clobetasol Propionate 0.05 % 1 application Externally Twice a day Active metroNIDAZOLE 0.75 % 1 application Exter antonieta Twice a day Active cycloSPORINE 0.05 % 1 drop into affected eye Ophthalmic Twice a day Active [place]-3 Active Fluticasone Propionate 50 MCG/ACT 1 spray [...] Status W/U Status Risk Notes Problem Neuropathy (451542753) Neuropathy (G62.9) Active confirmed Problem Chronic gouty arthritis (76382204) 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 65 Medicare Preferred [address] [place] [address] [id number] Maria E Hull Self - patient is the insured Medical (General) History Medical History History ICD Code Arthritis asthma Gout High blood pressure Psoriasis/eczema chronic sinusitis Chicken pox Surgical History Surgery Date(Month/Year) gall bladder 1998 hernia 1961
--- OUTSIDE RECORDS SUMMARY | 2025-09-13 10:49 | XMS_ITS | Patient Health Record ---
Author Organization [facility] Address [address] [place] [address] Care Team Providers Care Improvement Rn Name Role Phone Denise Talley Primary Care [...] spray in each nostril Nasally BID Not-Taking [place] 3 1000 MG 1 capsule Orally BID [...] primary osteoarthritis of the ankle and/or foot (059451289) Primary osteoarthrit is, right ankle and foot (M19.071) Active confirmed Problem Localized, primary osteoarthritis of the ankle and/or foot (626117924) Primary osteoarthrit is, left ankle and foot (M19.072) Active confirmed Plan Of Treatment Pending Test Test Name Order Date X ray : Foot, left 3v 10/09/2021 X ray : Foot, right 3v 10/09/2021 DRAIN/INJECT, SMALL JOINT/BURSA 01/08/20 22 Insurance Providers Payer Name Payer Address Payer Phone Subscriber Number Group Number Insured Name Patient Relationship to Insured Coverage Start Date Coverage End Date [facility] [address] [place] [address] [phone] [id number] Maria E Hull Self - patient [...]
== END 2025-09-13 09:44 | disposition home or self-care (01) ==
LOC: HO.HOS 08:57
PROVIDERS: PCP Nurse Practitioner Family; Visit Provider Physical Medicine & Rehabilitation
DX: M48.062 Spinal stenosis, lumbar region with neurogenic claudication (principal)
CPT/HCPCS: 99214

== ENCOUNTER → 2025-09-13 08:57 | Outpatient (BNVA) | payer MEDICARE, SELFPAY | PROVIDERS: PCP Nurse Practitioner Family; Visit Provider Physical Medicine & Rehabilitation | DX: M48.062 Spinal stenosis, lumbar region with neurogenic claudication (principal) | CPT/HCPCS: 99212 ==

== ENCOUNTER 2025-09-27 07:50 | Outpatient (AMB) | payer MEDICARE, SELFPAY ==
--- OUTSIDE RECORDS SUMMARY | 2025-09-27 07:53 | XMS_ITS | Clinical Summary ---
Author Organization [facility] it Address [address] [place] [address] Care Team Providers Care Head Baker Name Role Phone Unavailable Primary Care Provider Unavailabl e Surgical History Surgery Date Site/Laterality Comments HERNIA REPAIR 1959 PROCEDURE: HISTORICAL HERNIA REPAIR/ING; COMMENT: bilateral CHOLECYSTECTOMY 1998 PROCEDURE: HISTORICAL CHOLECYSTECTOMY ESOPHAGOGASTRODUODENOSCOPY 11/16/13 PROCEDURE: MD ESOPHAGOGASTRODUODENOSCOPY TRANSORAL DIAGNOSTIC; COMMENT: normal, with normal [...] Depression Screening 10/25/2024 COVID-19 Vaccine ( - 2024-26 season) 2025 Influenza Vaccine (#1) 2025 9, [...]
--- OUTSIDE RECORDS SUMMARY | 2025-09-27 07:54 | XMS_ITS | Patient Health Record ---
Author Organization [facility] Address [address] [place] [address] Care Team Providers Care Human Service Coordinator Name Role Phone Denise Talley Primary Care [...] spray in each nostril Nasally BID Not-Taking [place] 3 1000 MG 1 capsule Orally BID [...] primary osteoarthritis of the ankle and/or foot (745221159) Primary osteoarthrit is, right ankle and foot (M19.071) Active confirmed Problem Localized, primary osteoarthritis of the ankle and/or foot (372740089) Primary osteoarthrit is, left ankle and foot (M19.072) Active confirmed Plan Of Treatment Pending Test Test Name Order Date X ray : Foot, left 3v 10/09/2021 X ray : Foot, right 3v 10/09/2021 DRAIN/INJECT, SMALL JOINT/BURSA 01/08/20 22 Insurance Providers Payer Name Payer Address Payer Phone Subscriber Number Group Number Insured Name Patient Relationship to Insured Coverage Start Date Coverage End Date [facility] [address] [place] [address] [phone] [id number] Maria E Hull Self - patient [...]
--- OUTSIDE RECORDS SUMMARY | 2025-09-27 07:54 | XMS_ITS | Patient Health Record ---
Author Organization [facility] Address [address] [place] [address] Care Team Providers Care Legal Coordinator Name Role Phone AlfredoAna Primary Care Provider Keisha Zuleta Unavailable [phone] Allergies Allergen (clinical drug ingredient) Drug/Non Drug Allergy documented on EMR Reaction Allergy Type Onset Date Status codeine Codeine Unknown Drug Allergy Active Latex Latex Unknown Allergy Active Reason For Referral No Information Medications Medication SIG (Take, Route, Frequency, Duration) Notes Start Date End Date Status Qcviube-Wrkpoznhobr-Ykluyws rol Active Ascorbic Acid Active Clobetasol Propionate 0.05 % 1 application Externally Twice a day Active metroNIDAZOLE 0.75 % 1 application Exter antonieta Twice a day Active cycloSPORINE 0.05 % 1 drop into affected eye Ophthalmic Twice a day Active [place]-3 Active Fluticasone Propionate 50 MCG/ACT 1 spray [...] Status W/U Status Risk Notes Problem Neuropathy (505161291) Neuropathy (G62.9) Active confirmed Problem Chronic gouty arthritis (87871895) 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 Problem Chronic gouty arthritis (02111893) 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
[2025-09-27 08:01] VITALS: BMI 26.7
--- NOTE | 2025-09-27 08:01 | MHC.OFFVIS ---
Vital Signs 09/27/25 08:01 Height 4 ft 11 in Weight 132 lb BMI 26.7 Intake Visit Reasons: Tinea unguium/left big toe nail Intake Note: Maria E is a 84 year old female who presents today as a new patient for an evaluation of her tinea unguium of her left big toe. Patient reports she had noticed the fungus about 1 month ago and mentions her nail is growing in and causes her discomfort and occasional pain on the medial border. She had utilized hydrocortisone and Dr. mendoza cream and has found no relief for her symptoms. Allergies amoxicillin Allergy (Verified 09/27/25 08:02) hives codeine Allergy (Verified 09/27/25 08:02) Anxiety HPI Comments Details: The patient is an 84 year old female with a past medical history as seen below presenting with pain to bilateral hallux sees in the area of the toenails. She reports that the pain is intermittent, not constant, and she realized the toenail was curving inward when the pain began. Both great toes are symptomatic, though she notes the left side was digging in more significantly. She denies any recent pedal injuries. She denies any other pedal concerns. [facility] Medical History (Updated 09/29/25 @ 15:03 by Rosy Story DPM) Nail dystrophy Nail disorder Pain in toes of both feet Ingrowing nail Tinea unguium Lumbar spondylosis High blood pressure Gout Asthma High cholesterol Social History Alcohol intake: current Alcohol intake frequency: holidays/special occasions only Patient Tobacco Use Status: Never used Tobacco Current occupational status: retired Current occupation: rt hand / Review of Systems Const Details: - Musculoskeletal: Reports intermittent pain in bilateral halluces. - Integumentary: Reports curving of bilateral hallucal toenails. - Neurological: Denies paresthesia in the feet. All systems reviewed & are unremarkable except as noted in HPI and below Physical Exam Vital Signs: BMI result Body Mass Index 26.7 Extrem Other: Bilateral lower extremity focused physical exam: Derm: Thickened, discolored, and dystrophic toenails x10 with subungual debris. Increased incurvation of medial and lateral borders of bilateral hallucal toenails noted. No open lesions abrasions or wounds noted. No active drainage, purulence, or bleeding noted. Skin supple and turgor within normal limits. No clinical signs of infection noted. Vascular: DP/PT pulses palpable. Capillary refill time less than 3 seconds. Temperature gradient warm to warm. No edema noted. Varicosities noted. Neuro: Protective sensation is grossly intact. MSK: Pain on palpation to bilateral halluces, left worse than right in the area of the toenails. No crepitus or fluctuance noted. Range of motion of forefoot, hindfoot and ankles within normal limits. No other gross abnormalities noted. Office Procedures AMB Debridement/Avulsion Podia Details: Performed slant backs of medial and lateral nail borders to bilateral halluces without incidents using sterile nail nippers. 05752-Mlony[place]hhs of Nail <6 Procedure code (CPT) selection complete Assessment & Plan Assessment & Plan (1) Tinea unguium: Code(s): B35.1 - Tinea unguium Category: Medical (2) Ingrowing nail: Code(s): L60.0 - Ingrowing nail Category: Medical (3) Pain in toes of both feet: Code(s): M79.674 - Pain in right toe(s); M79.675 - Pain in left toe(s) Category: Medical (4) Nail disorder: Code(s): L60.9 - Nail disorder, unspecified Category: Medical (5) Nail dystrophy: Code(s): L60.3 - Nail dystrophy Category: Medical Plan Patient was informed and verbally consented to the use of an ambient scribe for clinic note documentation during this visit. I discussed with the patient that the pain in her great toes is from the nails curving inward. I explained that slant backs would be beneficial. I recommended she soak her feet in Epsom salt and warm water for a few days to decrease irritation and prevent infection. I advised her that if the pain continues in the next couple of weeks, she should return for a more definitive procedure (partial nail avulsions) to remove the ingrown portion of the nail. We discussed a plan for routine nail care every nine weeks to manage the nails and prevent future issues, with the understanding that she should come in sooner if she experiences pain. - A slant back procedure was performed on the medial and lateral borders of the bilateral hallucal nails without incident to relieve pressure from the ingrown nails. - The patient was instructed to soak her feet in Epsom salt and warm water for the next few days to reduce swelling and prevent infection. - If pain persists in the next two weeks, the patient is to return for possible total nail avulsion to fully remove the ingrown portion of the nail. - Recommended routine nail care. - Advised patient to avoid barefoot walking and to wear supportive shoe gear. RTC in 9 weeks. Orders: Orders AMB Debridement/Avulsion Podiatry 09/27/25 B35.1 - Tinea unguium, L60.0 - Ingrowing nail, L60.3 - Nail dystrophy, L60.9 - Nail disorder, unspecified, M79.674 - Pain in right toe(s), M79.675 - Pain in left toe(s) Coding Level of Care Code New Pt Level 4 (04850) Diagnoses Tinea unguium B35.1 Ingrowing nail L60.0 Pain in toes of both feet M79.674; M79.675 Nail disorder L60.9 Nail dystrophy L60.3 CPT Codes Skin Debridement - CPT: 07673-Zannfyrtnsf of Nail <6 ([id number]) Time Spent (min) 50 Comment 5 mins for procedure
== END 2025-09-27 08:24 | disposition home or self-care (01) ==
LOC: HO.HPODS 07:50
PROVIDERS: PCP Nurse Practitioner Family; Visit Provider Student in an Organized Health Care Education/Training Program
DX: B35.1 Tinea unguium (principal); L60.0 Ingrowing nail; M79.674 Pain in right toe(s); M79.675 Pain in left toe(s); L60.9 Nail disorder, unspecified; L60.3 Nail dystrophy
CPT/HCPCS: 11720; 99204

== ENCOUNTER → 2025-09-27 07:50 | Outpatient (BNVA) | payer MEDICARE, SELFPAY | PROVIDERS: PCP Nurse Practitioner Family; Visit Provider Student in an Organized Health Care Education/Training Program | DX: B35.1 Tinea unguium (principal); L60.0 Ingrowing nail; M79.674 Pain in right toe(s); M79.675 Pain in left toe(s); L60.9 Nail disorder, unspecified | CPT/HCPCS: 11720; 99202 ==